=== PATIENT | male | born 1985 | race Caucasian/White ===

== ENCOUNTER 2018-09-15 20:58 | Emergency (ER) | payer SELFPAY ==
[~2018-09-15] VITALS: Ht 182.9 cm; Wt 68.0 kg
--- OUTSIDE RECORDS SUMMARY | 2018-09-15 21:06 | XMS REPORT | Continuity of Care Document ---
Author Organization Unknown Address Unknown Allergies There is no data. Medications There is no data. Problems There is no data. Procedures There is no data. Results There is no data. Encounters ACCT No. Visit Date/Time Discharge Status Pt. Type Provider Facility Loc./Unit Complaint [id number] 09/11/2018 16:40:00 09/11/2018 23:59:59 [facility] Outpatient [facility]
--- NOTE | 2018-09-15 21:37 | ED Integumentary General ---
General Chief Complaint: Lower Extremity Stated Complaint: LF ANKLE PAIN Nursing Triage Note: Patient advises on the first he began experiencing swelling and redness the the left lower extremity that has become progressively worse. He advises for the last four days he has taken and antibiotic, bactrim, that he had at home but states it is not improving. Source: patient Exam Limitations: no limitations History of Present Illness Date Seen by Provider: Sep 15, 2018 Time Seen by Provider: 21:37 Initial Comments 32-year-old male patient presents to the emergency department with complaints of redness and swelling to the left lower extremity beginning one week ago. Patient reports similar symptoms a few months ago and was admitted to [facility] 3 days. Patient reports on this occasion he did start Bactrim that he had left over from his previous infection. Patient also states he was seen at [facility] walk-in clinic on September 11 and told that he had a chemical burn from cleaning his house barefoot while using bleach. He denies being given any medications for this. Timing/Duration: week, other (reports mild improvement with bactrim) Location: extremities (left distal extremity) Possible Cause: no cause identified Modifying Factors: improves with other (mild improvement with Bactrim) Allergies and Home Medications Allergies Coded Allergies: amoxicillin (Verified Allergy, Unknown, 09/15/18) clavulanic acid (Verified Allergy, Unknown, 09/15/18) Uncoded Allergies: ARYTHROMYCIN (Allergy, Unknown, 09/15/18) PCN (Allergy, Unknown, 09/15/18) Patient Home Medication List Home Medication List Reviewed: Yes Review of Systems Review of Systems Constitutional: No chills, No diaphoresis, No fever, No malaise Respiratory: No cough, No dyspnea on exertion, No phlegm, No short of breath, No stridor, No wheezing Cardiovascular: No chest pain, No palpitations, No syncope Gastrointestinal: no symptoms reported Genitourinary: no symptoms reported Musculoskeletal: see HPI, joint pain (left foot and ankle pain (pt denies known recent injury)), joint swelling (left foot and ankle pain) Skin: change in color (erythema left foot and ankle) Psychiatric/Neurological: Denies Numbness, Denies Paresthesia, Denies Tingling All Other Systems Reviewed Negative Unless Noted: Yes (Negative excepted noted.) Past Uweojjs-Anyybo-Qbhggl Hx Past Med/Social Hx: Reviewed and Corrections made Patient Social History Alcohol Use: Occasionally Uses Recreational Drug Use: No Smoking Status: Current Everyday Smoker Type Used: Cigarettes Recent Foreign Travel: No Contact w/Someone Who Travel: No Recent Infectious Disease Expo: No Recent Hopitalizations: No Immunizations Up To Date Tetanus Booster (TDap): Less than 5yrs (2017) Seasonal Allergies Seasonal Allergies: No Past Medical History Surgeries: Yes (shoulder) Orthopedic Respiratory: No Cardiac: No Neurological: No Genitourinary: No Gastrointestinal: No Musculoskeletal: No Endocrine: No HEENT: No Cancer: No Psychosocial: No Blood Disorders: No Adverse Reaction/Blood Tranf: No Family Medical History Reviewed Nursing Family Hx No Pertinent Family Hx Physical Exam Vital Signs Vital Signs - First Documented 09/15/18 21:18 Temp 97.9 Pulse 103 Resp 14 B/P (MAP) 114/83 (93) Pulse Ox 99 O2 Delivery Room Air Capillary Refill : Less Than 3 Seconds General Appearance: WD/WN, no apparent distress HEENT: PERRL/EOMI, pharynx normal Neck: supple, normal inspection Cardiovascular: normal peripheral pulses (bilateral dorsalis pedis and posterior tibialis pulses 2+), regular rate, rhythm, no gallop, no murmur Respiratory: lungs clear, normal breath sounds, no respiratory distress, no accessory muscle use Extremities: no calf tenderness, normal capillary refill, other (swelling, erythema, TTP and mild warmth to the left ankle and left foot. multiple wounds and fissures to the bilat feet and and distal legs. ) Neurologic/Psychiatric: no motor/sensory deficits, alert, normal mood/affect, oriented x 3 Skin: other (swelling, erythema, TTP and mild warmth to the left ankle and left foot. multiple wounds and fissures to the bilat feet and and distal legs. ) Skin Problem Location: lower extremities Skin Problem Character: other (swelling, erythema, TTP and mild warmth to the left ankle and left foot. multiple wounds and fissures to the bilat feet and and distal legs. ) Progress/Results/Core Measures Results/Orders Lab Results Laboratory Tests Test 09/15/18 21:10 Range/Units White Blood Count 9.1 4.3-11.0 10^3/uL Red Blood Count 4.51 4.35-5.85 10^6/uL Hemoglobin 13.1 L 13.3-17.7 G/DL Hematocrit 40 40-54 % Mean Corpuscular Volume 89 80-99 FL Mean Corpuscular Hemoglobin 29 25-34 PG Mean Corpuscular Hemoglobin Concent 33 32-36 G/DL Red Cell Distribution Width 13.5 10.0-14.5 % Platelet Count 337 130-400 10^3/uL Mean Platelet Volume 10.3 7.4-10.4 FL Neutrophils (%) (Auto) 66 42-75 % Lymphocytes (%) (Auto) 22 12-44 % Monocytes (%) (Auto) 10 0-12 % Eosinophils (%) (Auto) 2 0-10 % Basophils (%) (Auto) 1 0-10 % Neutrophils # (Auto) 6.0 1.8-7.8 X 10^3 Lymphocytes # (Auto) 2.0 1.0-4.0 X 10^3 Monocytes # (Auto) 0.9 0.0-1.0 X 10^3 Eosinophils # (Auto) 0.2 0.0-0.3 10^3/uL Basophils # (Auto) 0.1 0.0-0.1 10^3/uL Sodium Level 137 135-145 MMOL/L Potassium Level 3.8 3.6-5.0 MMOL/L Chloride Level 101 98-107 MMOL/L Carbon Dioxide Level 26 21-32 MMOL/L Anion Gap 10 5-14 MMOL/L Blood Urea Nitrogen 19 H 7-18 MG/DL Creatinine 1.26 0.60-1.30 MG/DL Estimat Glomerular Filtration Rate > 60 BUN/Creatinine Ratio 15 Glucose Level 102 70-105 MG/DL Calcium Level 9.6 8.5-10.1 MG/DL Corrected Calcium 9.5 8.5-10.1 MG/DL Total Bilirubin 0.5 0.1-1.0 MG/DL Aspartate Amino Transf (AST/SGOT) 19 5-34 U/L Alanine Aminotransferase (ALT/SGPT) 14 0-55 U/L Alkaline Phosphatase 77 40-136 U/L C-Reactive Protein High Sensitivity 2.00 H 0.00-0.50 MG/DL Total Protein 7.3 6.4-8.2 GM/DL Albumin 4.1 3.2-4.5 GM/DL KELSEY Anderson Cbc With Automated Diff (09/15/18 21:48) Comprehensive Metabolic Panel (09/15/18 21:48) Hs C Reactive Protein (09/15/18 21:48) Ed Iv/Invasive Line Start (09/15/18 21:48) Fentanyl Injection (Sublimaze Injection (09/15/18 21:48) Ketorolac Injection (Toradol Injection) (09/15/18 21:48) Ns Iv 1000 Ml (Sodium Chloride 0.9%) (09/15/18 21:48) Clindamycin 900 Mg/50 Ml Ivpb (Cleocin P (09/15/18 22:00) Medications Given in ED Current Medications Medications Dose Ordered Sig/Mary Route Start Time Stop Time Status Last Admin Dose Admin Clindamycin Phosphate/Dextrose 50 ml @ 100 mls/hr ONCE ONCE IV 09/15/18 22:00 09/15/18 22:29 DC 09/15/18 22:34 100 MLS/HR Sodium Chloride 1,000 ml @ 0 mls/hr Q0M ONCE IV 09/15/18 21:48 09/15/18 21:51 DC 09/15/18 21:56 0 MLS/HR Vital Signs/I&O 09/15/18 21:18 Temp 97.9 Pulse 103 Resp 14 B/P (MAP) 114/83 (93) Pulse Ox 99 O2 Delivery Room Air Blood Pressure Mean: 93 Departure Communication (Admissions) Patient seen and evaluated. Initial labs obtained. Patient was given 50 g of fentanyl IV, 30 mg IV Toradol, and 1900 mg of IV Cleocin 1 dose. Impression Primary Impression: Cellulitis of left lower leg Additional Impression: Cellulitis of left foot Disposition: HOME, SELF-CARE Condition: Improved Departure-Patient Inst. Decision time for Depature: 22:42 Referrals: NO,LOCAL PHYSICIAN (PCP/Family) Primary Care Physician Patient Instructions: Cellulitis (Skin Infection), Adult (DC) Add. Discharge Instructions: All discharge instructions reviewed with patient and/or family. Voiced understanding. Medications as instructed. Tylenol extra strength supl-yic-[id number] as directed for pain. Ibuprofen 800 mg by mouth every 8 hours as needed for pain. Elevate the left lower extremity on pillows above the level of the heart as much as possible. Follow-up with your primary care provider for recheck as an outpatient Sunday or Sunday. Call [facility] morning for appointment time. Return to the emergency department for worsened pain, redness, fever, drainage, or any other concerns. Scripts Doxycycline Hyclate (Doxycycline Hyclate) 100 Mg Capsule 100 MG PO BID, #14 CAP 0 Refills Prov: KELSEY JACOB 09/15/18 Sulfamethoxazole/Trimethoprim (Bactrim Ds Tablet) 1 Each Tablet 1 EACH PO BID, #14 TAB 0 Refills Prov: KELSEY JACOB 09/15/18 Work/School Note: Local Medical Staff Listing KELSEY JACOB Sep 15, 2018 21:37
[2018-09-15] MEDS ORDERED: fentaNYL INJECTION 100 MCG/2 ML AMP IVP STA (21:48)
[2018-09-15] MEDS ORDERED: NS IV 1000 ML 1,000 ML IV ONE (21:48)
[2018-09-15] MEDS ORDERED: KETOROLAC 30 MG/ML VIAL IVP STA (21:48)
[2018-09-15] MEDS ORDERED: CLINDAMYCIN 900 MG/50 ML IVPB 50 ML IV ONE (22:00)
[2018-09-15 22:06] LABS: BASOPHILS # (AUTO) 0.1 10^3/uL (0.0-0.1); BASOPHILS % (AUTO) 1 % (0-10); EOSINOPHILS # (AUTO) 0.2 10^3/uL (0.0-0.3); EOSINOPHILS % (AUTO) 2 % (0-10); HEMATOCRIT 40 % (40-54); HEMOGLOBIN 13.1 G/DL (13.3-17.7); LYMPHOCYTES % (AUTO) 22 % (12-44); MEAN CORPUSCULAR HEMOGLOBIN 29 PG (25-34); MEAN CORPUSCULAR HGB CONC 33 G/DL (32-36); MEAN CORPUSCULAR VOLUME 89 FL (80-99); MEAN PLATELET VOLUME 10.3 FL (7.4-10.4); MONOCYTES # (AUTO) 0.9 X 10^3 (0.0-1.0); MONOCYTES % (AUTO) 10 % (0-12); NEUTROPHILS % (AUTO) 66 % (42-75); PLATELET COUNT 337 10^3/uL (130-400); RED CELL DISTRIBUTION WIDTH 13.5 % (10.0-14.5); WHITE BLOOD COUNT 9.1 10^3/uL (4.3-11.0)
[2018-09-15 22:21] LABS: ALANINE AMINOTRANSFERASE 14 U/L (0-55); ALBUMIN 4.1 GM/DL (3.2-4.5); ALKALINE PHOSPHATASE 77 U/L (40-136); BILIRUBIN,TOTAL 0.5 MG/DL (0.1-1.0); BUN/CREATININE RATIO 15; CALCIUM 9.6 MG/DL (8.5-10.1); CARBON DIOXIDE 26 MMOL/L (21-32); CHLORIDE 101 MMOL/L (98-107); CREATININE SERUM 1.26 MG/DL (0.60-1.30); GFR ESTIMATED > 60; GLUCOSE 102 MG/DL (70-105); POTASSIUM 3.8 MMOL/L (3.6-5.0); SODIUM 137 MMOL/L (135-145); TOTAL PROTEIN 7.3 GM/DL (6.4-8.2)
[2018-09-15] MEDS ORDERED: SULF1TAB35 PO (22:44)
[2018-09-15] MEDS ORDERED: DOXY100C2 PO (22:44)
[2018-09-15] MEDS ORDERED: RX-TRAMADOL 50 MG (ULTRAM) TAB PPK#4 PO STA (22:45)
--- NOTE | 2018-09-15 23:09 | NUR ---
clindymycin completed.
--- NOTE | 2018-09-15 23:12 | NUR ---
i will be merely d/cing pt for another nurse who said pt had his bolus completed already.
--- NOTE | 2018-09-15 23:20 | NUR ---
d/c instrcutions to pt. told to read all papers. scripts paper only. pt left ambulatory by self. pt lnows f/u. i went over the handtyped by information on the chart. iv d/cd by me prior to d/c. take home ultram given.
[2018-09-15 23:25] VITALS: BP 100/62
== END 2018-09-15 23:20 | disposition home or self-care (01) ==
LOC: ER 21:01
DX: L03.116 Cellulitis of left lower limb (principal); F17.210 Nicotine dependence, cigarettes, uncomplicated; Z88.1 Allergy status to other antibiotic agents; Z88.0 Allergy status to penicillin
CPT/HCPCS: 36415; 80053; 85025; 86141; 96361; 96365; 96375

== ENCOUNTER 2018-12-26 14:31 | Emergency (ER) | payer SELFPAY ==
[~2018-12-26] VITALS: Ht 182.8 cm; Wt 70.0 kg
[~2018-12-26 14:31] MED LIST: DOXY100C2 PO; SULF1TAB35 PO
[2018-12-26] MEDS ORDERED: SODIUM BICARB 8.4% 50 MEQ/50 ML VIAL IV ONE (14:45)
[2018-12-26] MEDS ORDERED: LIDOCAINE/EPI 2% 1:100,00 (XYLOCAINE) 20 ML VIAL INJ ONE (14:45)
--- NOTE | 2018-12-26 15:15 | ED General ---
General Chief Complaint: Skin/Wound Problems Stated Complaint: L ARM POSS SPIDER BITE Nursing Triage Note: AMB TO ROOM HAS AREA OF CONCERN IN L AC AREA. NOTICED 2 DAYS AGO Nursing Sepsis Screen: No Definite Risk Source of Information: Patient Exam Limitations: No Limitations History of Present Illness Date Seen by Provider: Dec 26, 2018 Time Seen by Provider: 14:36 Initial Comments This 33-year-old young man presents to the emergency room with a large abscess in the left antecubital fossa region. It has been growing over the past 2 days. There was no known injury or break in the skin to his knowledge. He states some tissue or dried drainage came off with the dressing today and a poor and. There his been a small amount of pus like drainage. He denies fever. There is an area about 2-3 cm in radius surrounding the abscess that is erythematous, tender, and warm. Skin is rather indurated. He denies any self injection that may have caused the abscess. Allergies and Home Medications Allergies Coded Allergies: amoxicillin (Verified Allergy, Unknown, 09/15/18) clavulanic acid (Verified Allergy, Unknown, 09/15/18) Uncoded Allergies: ARYTHROMYCIN (Allergy, Unknown, 09/15/18) PCN (Allergy, Unknown, 09/15/18) Home Medications Doxycycline Hyclate 100 Mg Capsule, 100 MG PO BID Prescribed by: KELSEY JACOB on 09/15/184 Sulfamethoxazole/Trimethoprim 1 Each Tablet, 1 EACH PO BID Prescribed by: KELSEY JACOB on 09/15/184 Sulfamethoxazole/Trimethoprim 1 Each Tablet, 1 EACH PO TID Increased frequency due to location and severity of infection Prescribed by: CLAU STANTON on 12/26/18 1516 Patient Home Medication List Home Medication List Reviewed: Yes Review of Systems Review of Systems Constitutional: no symptoms reported EENTM: no symptoms reported Respiratory: no symptoms reported Cardiovascular: no symptoms reported Gastrointestinal: no symptoms reported Musculoskeletal: no symptoms reported Skin: see HPI Psychiatric/Neurological: No Symptoms Reported Hematologic/Lymphatic: No Symptoms Reported Immunological/Allergic: no symptoms reported Past Mcwqbnw-Saqnhf-Utysdf Hx Past Med/Social Hx: Reviewed Nursing Past Med/Soc Hx Patient Social History Alcohol Use: Occasionally Uses Alcohol Beverage of Choice: Beer Recreational Drug Use: No Smoking Status: Current Everyday Smoker Type Used: Cigarettes Recent Foreign Travel: No Contact w/Someone Who Travel: No Recent Infectious Disease Expo: No Recent Hopitalizations: No Immunizations Up To Date Tetanus Booster (TDap): Less than 5yrs Seasonal Allergies Seasonal Allergies: No Past Medical History Surgeries: Yes (shoulder) Orthopedic Respiratory: No Cardiac: No Neurological: No Genitourinary: No Gastrointestinal: No Musculoskeletal: No Endocrine: No HEENT: No Cancer: No Psychosocial: No Blood Disorders: No Adverse Reaction/Blood Tranf: No Family Medical History No Pertinent Family Hx Physical Exam Vital Signs Vital Signs - First Documented 12/26/18 14:34 Temp 36.5 Pulse 97 Resp 18 B/P (MAP) 143/82 (102) Pulse Ox 99 O2 Delivery Room Air Capillary Refill : Less Than 3 Seconds Height, Weight, BMI Height: 6'0" Weight: 150lbs. oz. 68.994652mz; 20.00 BMI Method:Stated General Appearance: No Apparent Distress, WD/WN, Thin HEENT: PERRL/EOMI, Normal ENT Inspection Neck: Normal Inspection Respiratory: Lungs Clear, Normal Breath Sounds, No Accessory Muscle Use, No Respiratory Distress Cardiovascular: Regular Rate, Rhythm, No Edema, No Murmur Extremity: Other (Large abscess about 2-3 cm in diameter on the antecubital fossa of the left arm. There is a central crater with minimal drainage. There is warm erythema and a 2-3 cm radius surrounding the abscess. 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 Local anesthesia was then provided with buffered lidocaine with epinephrine. A ring block was made around the abscess. A small amount of anesthetic was injected directly over the skin of the abscess. A 1 cm incision was then made over the center of the abscess. A moderate amount of purulent material was expressed. Loculations were broken up with a hemostat. Medical student Vlad Carmona, MS 3 performed the incision under my direct supervision. Wound culture was obtained. Patient tolerated the procedure well. Wound was dressed with antibiotic ointment and gauze. Dressing supplies were sent with the patient. Progress/Results/Core Measures Suspected Sepsis Recent Fever Within 48 Hours: No Infection Criteria Present: None New/Unexplained Altered Menta: No Sepsis Screen: No Definite Risk SIRS Temperature: Pulse: 97 Respiratory Rate: 18 Blood Pressure 143 /82 Mean: 102 Results/Orders My Orders Orders - CLAU BOURGEOIS MD Lidocaine/Epi 2% 1:100,000 (Xylocaine/Ep (12/26/18 14:45) Sodium Bicarbonate 8.4% Vial (Sodium Bic (12/26/18 14:45) Wound Culture (12/26/18 15:16) Medications Given in ED Current Medications Medications Dose Ordered Sig/Mary Route Start Time Stop Time Status Last Admin Dose Admin Lidocaine/ Epinephrine 20 ml ONCE ONCE INJ 12/26/18 14:45 12/26/18 14:46 DC 12/26/18 14:49 20 ML Sodium Bicarbonate 50 meq ONCE ONCE IV 12/26/18 14:45 12/26/18 14:46 DC 12/26/18 14:49 50 MEQ Vital Signs/I&O 12/26/18 12/26/18 14:34 15:31 Temp 36.5 Pulse 97 97 Resp 18 18 B/P (MAP) 143/82 (102) 143/82 Pulse Ox 99 98 O2 Delivery Room Air Capillary Refill : Less Than 3 Seconds Blood Pressure Mean: 102 Departure Impression Primary Impression: Cellulitis and abscess of upper arm and forearm Additional Impression: Encounter for incision and drainage procedure Disposition: 01 HOME, SELF-CARE Condition: Improved Departure-Patient Inst. Decision time for Depature: 15:10 Referrals: NO,LOCAL PHYSICIAN (PCP/Family) Primary Care Physician Patient Instructions: Abscess Incision and Drainage (DC) Add. Discharge Instructions: Complete your antibiotics as prescribed. You may take ibuprofen up to 600 mg every 6 hours and/or Tylenol (acetaminophen) up to 1000 mg every 6 hours as needed for pain. Keep wound covered as long as it is draining. Soak in warm water and Hibiclens soap for 20-30 minutes 3 times a day as long as wound is inflamed and/or draining. Return to the emergency room if you have worsening symptoms, especially if you develop fevers over 100. All discharge instructions reviewed with patient and/or family. Voiced understa nding. Scripts Sulfamethoxazole/Trimethoprim (Bactrim Ds Tablet) 1 Each Tablet 1 EACH PO TID, #21 TAB Increased frequency due to location and severity of infection Prov: CLAU BOURGEOIS MD 12/26/18 Work/School Note: Work Release Form Date Seen in the Emergency Department: Dec 26, 2018 Return to Work: Dec 27, 2018 Other Restrictions Listed Below: Keep wound covered while at work until healed. CLAU BOURGEOIS MD Dec 26, 2018 15:15
[2018-12-26] MEDS ORDERED: SULF1TAB35 PO (15:16)
[2018-12-26 15:31] VITALS: BP 143/82
== END 2018-12-26 15:31 | disposition home or self-care (01) ==
LOC: EDUNIT# 14:31 → ER 14:32
DX: L03.114 Cellulitis of left upper limb (principal); L02.414 Cutaneous abscess of left upper limb; F17.210 Nicotine dependence, cigarettes, uncomplicated; Z88.0 Allergy status to penicillin; Z88.1 Allergy status to other antibiotic agents
CPT/HCPCS: 87070; 87077; 87186; 87205; 99282

== ENCOUNTER 2018-12-27 21:47 | Inpatient (IN) | payer SELFPAY ==
[~2018-12-27] VITALS: Ht 182.9 cm; Wt 71.8 kg
[2018-12-27] MEDS ORDERED: NS IV 1000 ML 1,000 ML IV ONE (23:17)
[2018-12-27] MEDS ORDERED: KETOROLAC 30 MG/ML VIAL IVP STA (23:17)
--- NOTE | 2018-12-27 23:21 | ED Integumentary General ---
General Chief Complaint: Skin/Wound Problems Stated Complaint: LEFT ARM PAIN Nursing Triage Note: c/o wound to LAC. patient stated he was here 1 day prior and had area drained, put on bactrim, without improvement Source: patient Exam Limitations: no limitations History of Present Illness Date Seen by Provider: Dec 27, 2018 Time Seen by Provider: 23:10 Initial Comments 33-year-old male patient presents with complaints of a wound and cellulitis to the left AC. Patient states he was here one day prior for similar complaints. Patient states an incision and drainage was performed and he was put on Bactrim. Patient reports increased redness, pain, and swelling. Timing/Duration: getting worse Location: extremities (left before meals) Possible Cause: no cause identified Modifying Factors: worse with other (worse with palpation and movement) Allergies and Home Medications Allergies Coded Allergies: amoxicillin (Verified Allergy, Unknown, 09/15/18) clavulanic acid (Verified Allergy, Unknown, 09/15/18) Uncoded Allergies: ARYTHROMYCIN (Allergy, Unknown, 09/15/18) PCN (Allergy, Unknown, 09/15/18) Home Medications Doxycycline Hyclate 100 Mg Capsule, 100 MG PO BID Prescribed by: KELSEY JACOB on 09/15/18 2244 Sulfamethoxazole/Trimethoprim 1 Each Tablet, 1 EACH PO BID Prescribed by: KELSEY JACOB on 09/15/18 2244 Sulfamethoxazole/Trimethoprim 1 Each Tablet, 1 EACH PO TID Increased frequency due to location and severity of infection Prescribed by: CLAU STANTON on 12/26/18 1516 Patient Home Medication List Home Medication List Reviewed: Yes Review of Systems Review of Systems Constitutional: No chills, No dizziness, No fever, No malaise EENTM: no symptoms reported Respiratory: no symptoms reported Cardiovascular: no symptoms reported Gastrointestinal: no symptoms reported Musculoskeletal: see HPI Skin: see HPI Psychiatric/Neurological: No Symptoms Reported All Other Systems Reviewed Negative Unless Noted: Yes (Negative excepted noted.) Past Gkkhjnj-Zkusiw-Hixbun Hx Past Med/Social Hx: Reviewed Nursing Past Med/Soc Hx Patient Social History Alcohol Use: Denies Use Number of Drinks Today: AA Alcohol Beverage of Choice: Beer Recreational Drug Use: No Type Used: Cigarettes Recent Foreign Travel: No Contact w/Someone Who Travel: No Recent Infectious Disease Expo: No Recent Hopitalizations: No Physical Abuse: No Sexual Abuse: No Mistreated: No Fear: No Immunizations Up To Date Tetanus Booster (TDap): Less than 5yrs Seasonal Allergies Seasonal Allergies: No Past Medical History Surgeries: Yes (shoulder) Orthopedic Respiratory: No Cardiac: No Neurological: No Genitourinary: No Gastrointestinal: No Musculoskeletal: No Endocrine: No HEENT: No Cancer: No Psychosocial: No Blood Disorders: No Adverse Reaction/Blood Tranf: No Family Medical History Reviewed Nursing Family Hx No Pertinent Family Hx Physical Exam Vital Signs Vital Signs - First Documented 12/27/18 22:21 Temp 36.8 Pulse 98 Resp 18 B/P (MAP) 126/81 (96) Pulse Ox 100 Capillary Refill : Less Than 3 Seconds General Appearance: WD/WN, no apparent distress Cardiovascular: normal peripheral pulses, regular rate, rhythm, no murmur Respiratory: lungs clear, normal breath sounds, no respiratory distress, no accessory muscle use Extremities: normal capillary refill, other (erythema, swelling, and warmth involving the proximal two thirds of the left forearm, left AC, and the distal one half of the bicep region) Neurologic/Psychiatric: no motor/sensory deficits, alert, normal mood/affect, oriented x 3 Skin: normal color, warm/dry, other (erythema, swelling, and warmth involving the proximal two thirds of the left forearm, left AC, and the distal one half of the bicep region) Skin Problem Location: upper extremities (left upper extremity) Skin Problem Character: erythema, swelling, tenderness, warm Progress/Results/Core Measures Results/Orders Lab Results Laboratory Tests Test 12/27/18 23:30 Range/Units White Blood Count 11.8 H 4.3-11.0 10^3/uL Red Blood Count 4.32 L 4.35-5.85 10^6/uL Hemoglobin 12.6 L 13.3-17.7 G/DL Hematocrit 38 L 40-54 % Mean Corpuscular Volume 89 80-99 FL Mean Corpuscular Hemoglobin 29 25-34 PG Mean Corpuscular Hemoglobin Concent 33 32-36 G/DL Red Cell Distribution Width 13.5 10.0-14.5 % Platelet Count 276 130-400 10^3/uL Mean Platelet Volume 10.4 7.4-10.4 FL Neutrophils (%) (Auto) 67 42-75 % Lymphocytes (%) (Auto) 18 12-44 % Monocytes (%) (Auto) 14 H 0-12 % Eosinophils (%) (Auto) 2 0-10 % Basophils (%) (Auto) 1 0-10 % Neutrophils # (Auto) 7.9 H 1.8-7.8 X 10^3 Lymphocytes # (Auto) 2.1 1.0-4.0 X 10^3 Monocytes # (Auto) 1.6 H 0.0-1.0 X 10^3 Eosinophils # (Auto) 0.2 0.0-0.3 10^3/uL Basophils # (Auto) 0.1 0.0-0.1 10^3/uL Sodium Level 135 135-145 MMOL/L Potassium Level 3.6 3.6-5.0 MMOL/L Chloride Level 100 98-107 MMOL/L Carbon Dioxide Level 24 21-32 MMOL/L Anion Gap 11 5-14 MMOL/L Blood Urea Nitrogen 16 7-18 MG/DL Creatinine 1.06 0.60-1.30 MG/DL Estimat Glomerular Filtration Rate > 60 BUN/Creatinine Ratio 15 Glucose Level 83 70-105 MG/DL Calcium Level 9.3 8.5-10.1 MG/DL Corrected Calcium 9.2 8.5-10.1 MG/DL Total Bilirubin 0.6 0.1-1.0 MG/DL Aspartate Amino Transf (AST/SGOT) 32 5-34 U/L Alanine Aminotransferase (ALT/SGPT) 19 0-55 U/L Alkaline Phosphatase 83 40-136 U/L C-Reactive Protein High Sensitivity 12.92 H 0.00-0.50 MG/DL Total Protein 7.3 6.4-8.2 GM/DL Albumin 4.1 3.2-4.5 GM/DL My Orders Orders - KELSEY JACOB Ed Iv/Invasive Line Start (12/27/18 23:17) Cbc With Automated Diff (12/27/18 23:17) Comprehensive Metabolic Panel (12/27/18 23:17) Hs C Reactive Protein (12/27/18 23:17) Ns Iv 1000 Ml (Sodium Chloride 0.9%) (12/27/18 23:17) Ketorolac Injection (Toradol Injection) (12/27/18 23:17) Clindamycin 900 Mg/50 Ml Ivpb (Cleocin P (12/27/18 23:30) Morphine Injection (Morphine Injection (12/28/18 00:15) Medications Given in ED Vital Signs/I&O 12/27/18 22:21 Temp 36.8 Pulse 98 Resp 18 B/P (MAP) 126/81 (96) Pulse Ox 100 Blood Pressure Mean: 96 Departure Communication (Admissions) Time/Spoke to Admitting Phy: 00:05 Dr. Ndiaye graciously accepts patient to his service for IV antibiotics and pain control. patient seen and evaluated. initial labs obtained with findings discussed with the patient. plan for admit d/w the patient. pt verbalizes understanding and agrees with the treatment plan. Impression Primary Impression: Cellulitis of left arm Additional Impression: Failure of outpatient treatment Disposition: 01 HOME, SELF-CARE Condition: Improved Admissions Decision to Admit Reason: Admit from ER (General) Decision to Admit/Date: Dec 28, 2018 Time/Decision to Admit Time: 00:17 Departure-Patient Inst. Referrals: NO,LOCAL PHYSICIAN (PCP/Family) Primary Care Physician KELSEY JACOB Dec 27, 2018 23:21
[2018-12-27] MEDS ORDERED: CLINDAMYCIN 900 MG/50 ML IVPB 50 ML IV ONE (23:30)
[2018-12-27 23:41] LABS: BASOPHILS # (AUTO) 0.1 10^3/uL (0.0-0.1); BASOPHILS % (AUTO) 1 % (0-10); EOSINOPHILS # (AUTO) 0.2 10^3/uL (0.0-0.3); EOSINOPHILS % (AUTO) 2 % (0-10); HEMATOCRIT 38 % (40-54); HEMOGLOBIN 12.6 G/DL (13.3-17.7); LYMPHOCYTES # (AUTO) 2.1 X 10^3 (1.0-4.0); LYMPHOCYTES % (AUTO) 18 % (12-44); MEAN CORPUSCULAR HEMOGLOBIN 29 PG (25-34); MEAN CORPUSCULAR HGB CONC 33 G/DL (32-36); MEAN CORPUSCULAR VOLUME 89 FL (80-99); MEAN PLATELET VOLUME 10.4 FL (7.4-10.4); MONOCYTES # (AUTO) 1.6 X 10^3 (0.0-1.0); MONOCYTES % (AUTO) 14 % (0-12); NEUTROPHILS # (AUTO) 7.9 X 10^3 (1.8-7.8); NEUTROPHILS % (AUTO) 67 % (42-75); PLATELET COUNT 276 10^3/uL (130-400); RED CELL DISTRIBUTION WIDTH 13.5 % (10.0-14.5); WHITE BLOOD COUNT 11.8 10^3/uL (4.3-11.0)
[2018-12-27 23:59] LABS: ALANINE AMINOTRANSFERASE 19 U/L (0-55); ALBUMIN 4.1 GM/DL (3.2-4.5); ALKALINE PHOSPHATASE 83 U/L (40-136); BILIRUBIN,TOTAL 0.6 MG/DL (0.1-1.0); BUN/CREATININE RATIO 15; CALCIUM 9.3 MG/DL (8.5-10.1); CARBON DIOXIDE 24 MMOL/L (21-32); CHLORIDE 100 MMOL/L (98-107); CREATININE SERUM 1.06 MG/DL (0.60-1.30); GFR ESTIMATED > 60; GLUCOSE 83 MG/DL (70-105); POTASSIUM 3.6 MMOL/L (3.6-5.0); SODIUM 135 MMOL/L (135-145); TOTAL PROTEIN 7.3 GM/DL (6.4-8.2)
[2018-12-28] VITALS (7 sets, daily range): BP systolic 103–135; BP diastolic 57–78
[2018-12-28] MEDS ORDERED: morphine INJ 10 MG/ML 1ML (SYR OR VIAL) IVP ONE (00:15)
--- NOTE | 2018-12-28 01:37 | NUR ---
BENJA MILLER admitted to room 424-1, with an admitting diagnosis of EXTENSIVE CELLULITIS LT UPPER EXTREMITY, FAILLED ANTIBIOTIC TREATMENT , on 12/28/18 from ED via , accompanied by ED STAFF.BENJA MILLER introduced to surroundings, call light, bed controls, phone, TV, temperature control, lights, meal times, smoking policy, visitor policy, side rail policy, bathrooms and showers. Patient Rights given to patient in the handbook.BENJA MILLER verbalizes understanding that [facility] is not responsible for the loss or damage to any personal effects or valuables that are kept in the patients posession during their hospitalization.
[2018-12-28] MEDS ORDERED: ONDANSETRON 4 MG/2 ML (SDV) Z0FRAN IV PRN (02:30)
[2018-12-28] MEDS: NS IV 1000 ML 1,000 ML IV SCH ×3 (02:44→15:38)
[2018-12-28] MEDS: fentaNYL INJECTION 100 MCG/2 ML AMP IV PRN (02:44)
[2018-12-28] MEDS ORDERED: CLINDAMYCIN 600 MG/50 ML IVPB 50 ML IV SCH (05:00)
[2018-12-28 05:36] LABS: BASOPHILS % (AUTO) 0 % (0-10); EOSINOPHILS # (AUTO) 0.2 10^3/uL (0.0-0.3); EOSINOPHILS % (AUTO) 2 % (0-10); HEMATOCRIT 36 % (40-54); HEMOGLOBIN 11.7 G/DL (13.3-17.7); LYMPHOCYTES % (AUTO) 21 % (12-44); MEAN CORPUSCULAR HEMOGLOBIN 29 PG (25-34); MEAN CORPUSCULAR HGB CONC 33 G/DL (32-36); MEAN CORPUSCULAR VOLUME 90 FL (80-99); MEAN PLATELET VOLUME 10.7 FL (7.4-10.4); MONOCYTES # (AUTO) 1.2 X 10^3 (0.0-1.0); MONOCYTES % (AUTO) 13 % (0-12); NEUTROPHILS % (AUTO) 64 % (42-75); PLATELET COUNT 230 10^3/uL (130-400); RED CELL DISTRIBUTION WIDTH 13.5 % (10.0-14.5); WHITE BLOOD COUNT 9.4 10^3/uL (4.3-11.0)
[2018-12-28 06:01] LABS: ALANINE AMINOTRANSFERASE 17 U/L (0-55); ALBUMIN 3.5 GM/DL (3.2-4.5); ALKALINE PHOSPHATASE 65 U/L (40-136); BILIRUBIN,TOTAL 0.5 MG/DL (0.1-1.0); BUN/CREATININE RATIO 14; CALCIUM 8.6 MG/DL (8.5-10.1); CARBON DIOXIDE 24 MMOL/L (21-32); CHLORIDE 106 MMOL/L (98-107); GFR ESTIMATED > 60; GLUCOSE 86 MG/DL (70-105); POTASSIUM 4.3 MMOL/L (3.6-5.0); SODIUM 137 MMOL/L (135-145); TOTAL PROTEIN 6.1 GM/DL (6.4-8.2)
[2018-12-28] MEDS: HYDROcodone/APAP 5 MG/325 MG (LORTAB) TAB PO PRN ×3 (07:01→20:48)
[2018-12-28] MEDS ORDERED: FLU QUADRIvalent (5+ YOA) 2019-2020 (AFLURIA) 0.5 ML IM ONE (07:45)
[2018-12-28] MEDS: KETOROLAC 30 MG/ML VIAL IVP PRN (08:11)
[2018-12-28] MEDS ORDERED: VANCOMYCIN INJECTION 1,250 MG in NS (IVPB) 250 ML IV ONE (11:45)
[2018-12-28] MEDS ORDERED: VANCOMYCIN INJECTION 0.1 MG in NS (IVPB) 250 ML IV SCH (11:45)
[2018-12-28] MEDS ORDERED: VANCOMYCIN 1500 MG/NS 500 ML IVPB IV NR ×2 (11:47)
[2018-12-28] MEDS ORDERED: HOLD METFORMIN - RECEIVED CONTRAST 20 ML VIAL IV SCH (12:30)
[2018-12-28] MEDS ORDERED: IOHEXOL 350 MG/ML 100 ML (OMNIPAQUE 350) VIAL IV ONE (12:30)
[2018-12-28] MEDS ORDERED: NS 100 ML (IVPB) BAG IV ONE (12:30)
--- NOTE | 2018-12-28 13:57 | Diagnostic Imaging Report ---
PROCEDURE: CT left upper extremity with contrast. TECHNIQUE: Axial images were obtained through the left upper extremity after intravenous contrast and reformatted into coronal and sagittal oblique planes. Auto Exposure Controls were utilized during the CT exam to meet ALARA standards for radiation dose reduction. INDICATION: Abscess. FINDINGS: No comparison available. There is a wound involving the anterior aspect of the left elbow soft tissues. There is a fluid collection measuring 2.1 x 1.3 cm extending into the musculature deep to the soft tissue wound. The craniocaudal extent is 3.9 cm. Vasculature is patent. No osseous involvement is present. No osteomyelitis. There are enlarged left axillary lymph nodes measuring up to 15 mm. IMPRESSION: 1. Soft tissue wound anteriorly at the level of the left elbow with extension into the underlying musculature with pyomyositis and an intramuscular abscess measuring 1.3 x 2.1 x 3.9 cm. 2. Vasculature is patent and there is no involvement of the bone. Dictated by: Dictated on workstation # [id number]
--- NOTE | 2018-12-28 16:19 | Consultation - Surgery ---
History of Present Illness History of Present Illness Patient Consulted On(alexis/time) 12/28/18 16:12 Time Seen by Provider: 15:52 History of Present Illness Surgery asked to consult regarding LUE cellulitis. HPI per ED: 33-year-old male patient presents with complaints of a wound and cellulitis to the left upper arm. Patient states he was here one day prior for similar complaints. Patient states an incision and drainage was performed and he was put on Bactrim. Patient reports increased redness, pain, and swelling. Timing/Duration: getting worse Location: extremities left upper Possible Cause: no cause identified Modifying Factors: worse with other (worse with palpation and movement) When I spoke with pt he states the pain and swelling is about the same, but the redness is better. He denies any trauma to the area or previous cuts. He reports the pain as 6 out of 10. Apparently it got worse while taking oral ABX at home. Allergies and Home Medications Allergies Coded Allergies: amoxicillin (Verified Allergy, Unknown, 09/15/18) clavulanic acid (Verified Allergy, Unknown, 09/15/18) Uncoded Allergies: ARYTHROMYCIN (Allergy, Unknown, 09/15/18) PCN (Allergy, Unknown, 09/15/18) Home Medications Doxycycline Hyclate 100 Mg Capsule, 100 MG PO BID Prescribed by: KELSEY JACOB on 09/15/184 Sulfamethoxazole/Trimethoprim 1 Each Tablet, 1 EACH PO BID Prescribed by: KELSEY JACOB on 09/15/18 2244 Sulfamethoxazole/Trimethoprim 1 Each Tablet, 1 EACH PO TID Increased frequency due to location and severity of infection Prescribed by: CLAU STANTON on 12/26/18 1516 Patient Home Medication List Home Medication List Reviewed: Yes Past Guucsrw-Gwmkyi-Fduwfs Hx Patient Social History Alcohol Use: Denies Use Number of Drinks Today: AA Recreational Drug Use: No Type Used: Cigarettes Recent Foreign Travel: No Contact w/Someone Who Travel: No Recent Infectious Disease Expo: No Recent Hopitalizations: No Physical Abuse Screen: No Sexual Abuse: No Immunizations Up To Date Tetanus Booster (TDap): Less than 5yrs Seasonal Allergies Seasonal Allergies: No Surgeries History of Surgeries: Yes (shoulder) Surgeries: Orthopedic Respiratory History of Respiratory Disorde: No Cardiovascular History of Cardiac Disorders: No Neurological History of Neurological Disord: No Genitourinary History of Genitourinary Disor: No Gastrointestinal History of Gastrointestinal Di: No Musculoskeletal History of Musculoskeletal Dis: No Endocrine History of Endocrine Disorders: No HEENT History of HEENT Disorders: No Cancer History of Cancer: No Psychosocial History of Psychiatric Problem: No Integumentary History of Skin or Integumenta: Yes (see hpi) Blood Transfusions History of Blood Disorders: No Adverse Reaction to a Blood Tr: No Family Medical History Significant Family History: Diabetes (grandparents), Other Conditions/Hx (Pt stated his parents do not have any medical problems) Review of Systems-General Constitutional: chills, diaphoresis, malaise EENTM: No blurred vision, No double vision, No mouth pain, No mouth swelling, N o epistaxis Respiratory: No cough, No dyspnea on exertion, No hemoptysis Cardiovascular: No chest pain, No palpitations Gastrointestinal: No abdominal pain, No nausea, No vomiting Genitourinary: No dysuria, No frequency, No hematuria Musculoskeletal: joint pain, joint swelling, muscle stiffness Skin: change in color; No change in hair/nails; lesions Psychiatric/Neurological: Denies Anxiety, Denies Depressed, Denies Seizure, Denies Tremors Other pt denies any hx of abnormal bleeding or bruising Physical Exam-General Problems Physical Exam Vital Signs Vital Signs - First Documented 12/27/18 12/28/18 22:21 00:32 Temp 36.8 Pulse 98 Resp 18 B/P (MAP) 126/81 (96) Pulse Ox 100 O2 Delivery Room Air Capillary Refill : Less Than 3 Seconds General Appearance: WD/WN, no apparent distress Eyes: Bilateral Eye PERRL, Bilateral Eye EOMI HEENT: pharynx normal; No pale conjunctivae (R), No pale conjunctivae (L) Neck: non-tender, full range of motion, supple, normal inspection Respiratory: chest non-tender, lungs clear, normal breath sounds, no respiratory distress, no accessory muscle use Cardiovascular: regular rate, rhythm, no murmur Gastrointestinal: normal bowel sounds, non tender, soft, no organomegaly, no pulsatile mass Back: no CVA tenderness, no vertebral tenderness Extremities: no pedal edema, no calf tenderness, normal capillary refill, other (Left arm at AC, tender, swollen but only minimal erythema. 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, alert, normal mood/affect, oriented x 3 Skin: normal color, warm/dry Lymphatic: no adenopathy (neck or groin ), axilla node tender (L) Data Review Labs Laboratory Tests 12/27/18 23:30: White Blood Count 11.8H, Red Blood Count 4.32L, Hemoglobin 12.6L, Hematocrit 38L , Mean Corpuscular Volume 89, Mean Corpuscular Hemoglobin 29, Mean Corpuscular Hemoglobin Concent 33, Red Cell Distribution Width 13.5, Platelet Count 276, Mean Platelet Volume 10.4, Neutrophils (%) (Auto) 67, Lymphocytes (%) (Auto) 18, Monocytes (%) (Auto) 14H, Eosinophils (%) (Auto) 2, Basophils (%) (Auto) 1, Neutrophils # (Auto) 7.9H, Lymphocytes # (Auto) 2.1, Monocytes # (Auto) 1.6H, Eosinophils # (Auto) 0.2, Basophils # (Auto) 0.1, Sodium Level 135, Potassium Level 3.6, Chloride Level 100, Carbon Dioxide Level 24, Anion Gap 11, Blood Urea Nitrogen 16, Creatinine 1.06, Estimat Glomerular Filtration Rate > 60, BUN/Creatinine Ratio 15, Glucose Level 83, Calcium Level 9.3, Corrected Calcium 9.2, Total Bilirubin 0.6, Aspartate Amino Transf (AST/SGOT) 32, Alanine Aminotransferase (ALT/SGPT) 19, Alkaline Phosphatase 83, C-Reactive Protein High Sensitivity 12.92H, Total Protein 7.3, Albumin 4.1 12/28/18 05:13: White Blood Count 9.4, Red Blood Count 4.00L, Hemoglobin 11.7L, Hematocrit 36L, Mean Corpuscular Volume 90, Mean Corpuscular Hemoglobin 29, Mean Corpuscular Hemoglobin Concent 33, Red Cell Distribution Width 13.5, Platelet Count 230, Mean Platelet Volume 10.7H, Neutrophils (%) (Auto) 64, Lymphocytes (%) (Auto) 21, Monocytes (%) (Auto) 13H, Eosinophils (%) (Auto) 2, Basophils (%) (Auto) 0, Neutrophils # (Auto) 6.0, Lymphocytes # (Auto) 2.0, Monocytes # (Auto) 1.2H, Eosinophils # (Auto) 0.2, Basophils # (Auto) 0.0, Sodium Level 137, Potassium Level 4.3, Chloride Level 106, Carbon Dioxide Level 24, Anion Gap 7, Blood Urea Nitrogen 13, Creatinine 0.90, Estimat Glomerular Filtration Rate > 60, BUN/Creatinine Ratio 14, Glucose Level 86, Calcium Level 8.6, Corrected Calcium 9.0, Total Bilirubin 0.5, Aspartate Amino Transf (AST/SGOT) 27, Alanine Aminotransferase (ALT/SGPT) 17, Alkaline Phosphatase 65, C-Reactive Protein High Sensitivity 11.45H, Total Protein 6.1L, Albumin 3.5 Radiology PROCEDURE: CT left upper extremity with contrast. TECHNIQUE: Axial images were obtained through the left upper extremity after intravenous contrast and reformatted into coronal and sagittal oblique planes. Auto Exposure Controls were utilized during the CT exam to meet ALARA standards for radiation dose reduction. INDICATION: Abscess. FINDINGS: No comparison available. There is a wound involving the anterior aspect of the left elbow soft tissues. There is a fluid collection measuring 2.1 x 1.3 cm extending into the musculature deep to the soft tissue wound. The craniocaudal extent is 3.9 cm. Vasculature is patent. No osseous involvement is present. No osteomyelitis. There are enlarged left axillary lymph nodes measuring up to 15 mm. IMPRESSION: 1. Soft tissue wound anteriorly at the level of the left elbow with extension into the underlying musculature with pyomyositis and an intramuscular abscess measuring 1.3 x 2.1 x 3.9 cm. 2. Vasculature is patent and there is no involvement of the bone. Dictated by: Dictated on workstation # [id number] Assessment/Plan Assessment/Plan Assessment/Plan Left Upper arm Cellulitis Edema Plan is to continue IV fluids, IV ABX, pain control and elevate arm. The arm does not look as bad as the CT reading sounds. I am going to try another day of IV ABX and reassess tomorrow. To be safe I will make him npo after midnight just in case we decide to take him for I&D tomorrow. Clinical Quality Measures DVT/VTE Risk/Contraindication: Risk Factor Score Per Nursin RFS Level Per Nursing on Admit: 1=Low/No VTE PPX ROBYN SUÁREZ DO Dec 28, 2018 16:19
--- NOTE | 2018-12-28 16:44 | NUR ---
Vanco - Loading dose of 1500mg followed by 1250mg every 12 hours. Trough will be ordered to be drawn prior to the 4th dose.
--- NOTE | 2018-12-28 17:08 | History & Physical-Hospitalist ---
History of Present Illness HPI/Chief Complaint Jeffrey Gutierrez is a 33-year-old male who presented with a left arm abscess. He had been in the emergency room a few days ago and underwent an I&D. He was placed on Bactrim at that time and his abscess has failed to improve. He reports worsening erythema and pain. He reports having chills. He is unsure if he has had fevers. He denies any chest pain or shortness of breath. He denies any abdominal pain, nausea, or vomiting. Source: patient Exam Limitations: no limitations Date Seen 12/28/18 Time Seen by a Provider: 10:15 Attending Physician Radha Vences MD PCP No,Local Physician Referring Physician Date of Admission Dec 28, 2018 at 00:17 Home Medications & Allergies Home Medications Reviewed patient Home Medication Reconciliation performed by pharmacy medication reconciliations auto transmission technician and/or nursing. Patients Allergies have been reviewed. 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) Type Used: Cigarettes Physical Abuse Screen: No Sexual Abuse: No Recent Foreign Travel: No Contact w/other who traveled: No Recent Hopitalizations: No Recent Infectious Disease Expo: No Immunizations Up To Date Tetanus Booster (TDap): Less than 5yrs Seasonal Allergies Seasonal Allergies: No Past Medical History Surgeries: Orthopedic History of Blood Disorders: No Adverse Reaction to Blood [place]: No Family History Reviewed Nursing Family Hx Diabetes (grandparents), Other Conditions/Hx (Pt stated his parents do not have any medical problems) Review of Systems Constitutional: chills EENTM: no symptoms reported Respiratory: no symptoms reported Cardiovascular: no symptoms reported Gastrointestinal: no symptoms reported Genitourinary: no symptoms reported Musculoskeletal: no symptoms reported Skin: lesions, lumps, rash Psychiatric/Neurological: No Symptoms Reported Physical Exam Physical Exam Vital Signs Vital Signs - First Documented 12/27/18 12/28/18 22:21 00:32 Temp 36.8 Pulse 98 Resp 18 B/P (MAP) 126/81 (96) Pulse Ox 100 O2 Delivery Room Air Capillary Refill : Less Than 3 Seconds Height, Weight, BMI Height: 6'0" Weight: 150lbs. oz. [id number]; 21.46 BMI Method:Stated General Appearance: No Apparent Distress, WD/WN Respiratory: Lungs Clear, Normal Breath Sounds, No Respiratory Distress Cardiovascular: Regular Rate, Rhythm, No Edema, No Murmur Gastrointestinal: Normal Bowel Sounds, Non Tender, Soft Extremity: No Pedal Edema, Inflammation, Swelling, Other (left antecubital abscess with surrounding erythema and induration, yellow pustular discharge present) Skin: Erythema Lymphatic: Axilla Node Tender (L) Results Results/Procedures Labs Laboratory Tests 12/27/18 23:30 12/28/18 05:13 Patient resulted labs reviewed. Imaging: Reviewed Imaging Report Assessment/Plan Admission Diagnosis left arm abscess Admission Status: Observation Reason for Inpatient Admission: left arm abscess with worsening cellulitis requiring intravenous antibiotics and surgical consultation Assessment and Plan left arm abscess Cellulitis Recent wound culture growing staph aureus Started on clindamycin Susceptibilities pending Transition to vancomycin and until MRSA ruled out consult surgery Obtain CT extremity Diagnosis/Problems Diagnosis/Problems (1) Abscess of left arm Status: Acute (2) Cellulitis of left arm Status: Acute (3) Failure of outpatient treatment Status: Acute Clinical Quality Measures DVT/VTE Risk/Contraindication: Risk Factor Score Per Nursin RFS Level Per Nursing on Admit: 1=Low/No VTE PPX RADHA VENCES MD Dec 28, 2018 17:08
[2018-12-29] VITALS (12 sets, daily range): BP systolic 100–121; BP diastolic 66–86
[2018-12-29] MEDS: HYDROcodone/APAP 5 MG/325 MG (LORTAB) TAB PO PRN ×3 (01:16→19:19)
[2018-12-29] MEDS: NS IV 1000 ML 1,000 ML IV SCH ×5 (01:16→20:10)
[2018-12-29] MEDS: VANCOMYCIN 1250 MG/NS 250 ML IVPB IV SCH ×4 (03:15→14:49)
[2018-12-29] MEDS: KETOROLAC 30 MG/ML VIAL IVP PRN ×2 (04:13→16:59)
[2018-12-29] MEDS: fentaNYL INJECTION 100 MCG/2 ML AMP IV PRN ×4 (09:35→22:06)
--- NOTE | 2018-12-29 10:31 | Progress Note - Surgery ---
ASUNCION MORA,MED STUDENT 12/29/18 1031: Subjective Date Seen by a Provider: Dec 29, 2018 Time Seen by a Provider: 09:45 Subjective/Events-last exam Patient complains of increased pain since yesterday, rating it at 9/10 at this time. He thinks that it looks about the same as yesterday but he notes increasing feeling of "tightness" in the forearm distal to the abscess. He also reports chills. Denies fever or increased redness at the site. He has been NPO since midnight. Objective Exam Vital Signs Date Time Temp Pulse Resp B/P (MAP) Pulse Ox O2 Delivery O2 Flow Rate FiO2 12/29/18 08:00 36.9 71 20 109/66 (80) 100 Room Air 12/29/18 07:49 Room Air 12/29/18 04:27 36.9 86 16 109/70 (83) 100 Room Air 12/29/18 00:31 37.0 74 16 118/73 (88) 97 Room Air 12/28/18 20:00 Room Air 12/28/18 19:40 36.2 88 20 119/57 (77) 99 Room Air 12/28/18 16:13 37.3 67 20 135/70 (91) 100 Room Air 12/28/18 12:00 36.4 69 18 103/58 (73) 100 Room Air I & O 12/29/18 07:00 Intake Total 1850 ml Balance 1850 ml Capillary Refill : Less Than 3 Seconds General Appearance: No Apparent Distress, WD/WN Respiratory: No Accessory Muscle Use, No Respiratory Distress Cardiovascular: No Edema, Normal Peripheral Pulses Extremity: No Pedal Edema, Inflammation, Swelling, Other (left antecubital abscess with surrounding erythema and induration, erythema does not appear to extend beyond outline drawn yesterday, white purulent discharge present) Neurologic/Psychiatric: Alert, Normal Mood/Affect Skin: Erythema Assessment/Plan Assessment/Plan Assessment/Plan Left Upper arm Cellulitis Edema Culture and sensitivity revealed clindamycin resistance so he was switched to Vancomycin. Continue IV fluids, IV Vancomycin, pain control, and arm elevation. WBC count normal yesterday at 9.8 Clinical Quality Measures DVT/VTE Risk/Contraindication: Risk Factor Score Per Nursin RFS Level Per Nursing on Admit: 1=Low/No VTE PPX BHAVIN ODELL DO 12/29/18 1201: Subjective Time Seen by a Provider: 11:31 Subjective/Events-last exam Pt seen and examined, states arm is more tense and tender. Review of Systems General: Malaise Pulmonary: No Dyspnea, No Cough Cardiovascular: No: Chest Pain, Palpitations Objective Exam Extremity: Other (left antecubital abscess with surrounding erythema and induration, erythema does not appear to extend beyond outline drawn yesterday, fibrinous material at skin edge) Assessment/Plan Assessment/Plan Assessment/Plan Left Upper arm - looking worse, plan to take him to OR for I&D with possible packing and debridement. Discussed risks and complications of procedure with pt; including but not limited to pain, bleeding, infection and will need to leave incision open. All questions answered to his satisfaction. Supervisory-Addendum Brief Verification & Attestation Participated in pt care: history, MDM, physical Personally performed: exam, history, MDM Care discussed with: Medical Student Procedures: n/a Verification and Attestation of Medical Student E/M Service A medical student performed and documented this service in my presence. I reviewed and verified all information documented by the medical student and made modifications to such information, when appropriate. I personally performed the physical exam and medical decision making. Bhavin Odell, Dec 29, 2018,12:10 ASUNCION MORA,MED STUDENT Dec 29, 2018 10:31 BHAVIN ODELL DO Dec 29, 2018 12:01
[2018-12-29] MEDS ORDERED: ONDANSETRON 4 MG/2 ML (SDV) Z0FRAN ONE (12:30)
[2018-12-29] MEDS ORDERED: proPOfol 200 MG/20 ML (DIPRIVAN) VIAL IV ONE (12:30)
[2018-12-29] MEDS ORDERED: fentaNYL INJECTION 100 MCG/2 ML AMP ONE (12:30)
[2018-12-29] MEDS ORDERED: LIDOCAINE PF 2% 5 ML (XYLOCAINE) VIAL ONE (12:30)
--- NOTE | 2018-12-29 12:30 | NUR ---
PT LEFT FLOOR VIA STRETCHER IN ROUTE TO SURGERY FOR PROCEDURE ACCOMPANIED BY OR STAFF. THIS RN WILL AWAIT PT RETURN.
[2018-12-29] MEDS ORDERED: MIDAZOLAM 2 MG/2 ML (VERSED) VIAL ONE (12:31)
[2018-12-29] MEDS ORDERED: HYDROmorphone 2 MG/ML VIAL (DILAUDID) ONE (12:32)
[2018-12-29] MEDS ORDERED: morphine INJ 10 MG/ML 1ML (SYR OR VIAL) ONE (12:32)
[2018-12-29] MEDS ORDERED: SEVOFLURANE (ULTANE) 15 ML INHAL SOLN ONE ×3 (12:36→14:12)
[2018-12-29] MEDS ORDERED: LACTATED RINGERS 1,000 ML IV PRN (13:11)
--- NOTE | 2018-12-29 13:29 | Progress Note-Post Operative ---
Post-Operative Progess Note Surgeon (s)/Cardboard Cutter (s) Surgeon ROBYN SUÁREZ DO Cardboard Cutter: SANDRA MoctezumaII Pre-Operative Diagnosis Left upper extremity Cellulitis possible abscess Post-Operative Diagnosis Same with abscess Procedure & Operative Findings Date of Procedure 12/29/18 Procedure Performed/Findings I&D with debridement and packing Anesthesia Type GET Estimated Blood Loss Estimated blood loss (mL): scant Specimens/Packing Specimens Removed fluid culture ROBYN SUÁREZ DO Dec 29, 2018 13:29
[2018-12-29] MEDS ORDERED: PROMETHAZINE INJ 25 MG/ML (PHENERGAN) AMP IVP ONE (13:45)
[2018-12-29] MEDS ORDERED: HYDROmorphone 2 MG/ML VIAL (DILAUDID) IV ONE (13:45)
[2018-12-29] MEDS ORDERED: ONDANSETRON 4 MG/2 ML (SDV) Z0FRAN IVP PRN (13:45)
[2018-12-29] MEDS ORDERED: MEPERIDINE (DEMEROL) INJ 50 MG/ML IVP ONE (13:45)
[2018-12-29] MEDS ORDERED: morphine INJ 10 MG/ML 1ML (SYR OR VIAL) IVP ONE (13:45)
--- NOTE | 2018-12-29 14:35 | NUR ---
PT TO ROOM 424 VIA STRETCHER ACCOMPANIED BY OR STAFF. REPORT RECEIVED FROM OR STAFF. LR INFUSING IN R AC WITH 250ML LEFT IN BAG. PT RESTING EYES CLOSED, RESPIRATIONS EVEN AND UNLABORED. DRESSING TO LEFT FOREARM DRY AND INTACT. CAP REFILL TO LEFT HAND LESS THAN 3 SEC. THIS RM WILL ASSUME CARE OF PATIENT.
--- NOTE | 2018-12-29 15:40 | NUR ---
DR SUÁREZ NOTIFIED BY THIS RN IN REGARDS TO PT DIET. NEW ORDER RECEIVED.
--- NOTE | 2018-12-29 15:49 | OPERATIVE REPORT ---
DATE OF SERVICE: PREOPERATIVE DIAGNOSIS: Left upper extremity cellulitis with possible abscess. POSTOPERATIVE DIAGNOSIS: Left upper extremity cellulitis with abscess. PROCEDURE: Incision and drainage with debridement and packing. SURGEON: Robyn Odell DO FIRST ASSISTANTS: Shasha Estrada MS3 and Sandy Ireland MS3 SPECIMEN: Purulent fluid. BLOOD LOSS: Scant. FLUIDS: Per anesthesia. POSTOPERATIVE CONDITION: Stable. INDICATION FOR PROCEDURE: The patient is a 33-year-old male who has a left upper extremity swelling, cellulitis, possibly an abscess, arm was getting a little worse and needed to go for incision and drainage. FINDINGS: The patient had an abscess that was under the muscle, culture obtained. PROCEDURE NOTE: After informed consent was obtained, the patient was brought to the operating room, placed on the operating table in supine position, sterilely prepped and draped in normal fashion. An incision was made in the left forearm, ventral aspect approximately 8 cm incision carried down through the skin into subcutaneous tissue, then deepened down through the subcutaneous tissue and through the muscle and once through the muscle got an immediate release of whitish purulent fluid, did a culture of this and then with blunt dissection, opened this up to release all of pocket of purulence, did some rough debridement with a 4 x 4 in the muscle, copiously irrigated with normal saline and then elected to pack with iodoform packing half inch packing was used, pack this open and then area was cleaned and dried, dressing placed. The patient tolerated the procedure. Sponge, instrument and needle count correct at the end of the case. Job ID: [id number] DocumentID: [id number] Dictated Date: 12/29/2018 13:26:39 Dinkey Dispatcher Date: 12/29/2018 15:48:11 Dictated By: ROBYN ODELL DO [facility]
[2018-12-29] MEDS ORDERED: NICOTINE 14 MG (NICODERM) PATCH TD ONE (17:00)
[2018-12-29] MEDS ORDERED: NICOTINE 2 MG GUM (NICORETTE) PO PRN (17:00)
--- NOTE | 2018-12-29 17:00 | Progress Note - Hospitalist ---
Subjective HPI/CC On Admission Date Seen by Provider: Dec 29, 2018 Time Seen by Provider: 10:00 left arm abscess Subjective/Events-last exam He reports that the pain and tightness in his forearm again worse. He has not noticed any worsening of the cellulitis. The wound continues to drain carlos pus. He does not believe that he has had any fevers. He denies any chest pain or shortness of breath. Objective Exam Vital Signs Vital Signs Date Time Temp Pulse Resp B/P (MAP) Pulse Ox O2 Delivery O2 Flow Rate FiO2 12/29/18 16:00 37.0 71 18 121/80 (94) 96 Room Air 12/29/18 14:15 2 Capillary Refill : Less Than 3 Seconds General Appearance: No Apparent Distress, WD/WN HEENT: PERRL/EOMI, Pharynx Normal Neck: Normal Inspection, Supple Respiratory: Lungs Clear, Normal Breath Sounds, No Respiratory Distress Cardiovascular: Regular Rate, Rhythm, No Edema, No Murmur Gastrointestinal: Normal Bowel Sounds, Non Tender, Soft Extremity: Inflammation, Swelling, Other (Left antecubital abscess draining carlos pus, surrounding erythema and tenderness with induration) Neurologic/Psychiatric: Alert, Oriented x3, No Motor/Sensory Deficits, Normal Mood/Affect Skin: Warm/Dry, Other (See "extremity" above) Lymphatic: Axilla Node Tender (L) Results/Procedures Lab Patient resulted labs reviewed. Imaging: Reviewed Imaging Films, Reviewed Imaging Report Assessment/Plan Assessment and Plan Assess & Plan/Chief Complaint Left arm abscess Cellulitis Wound culture revealed MRSA Continue vancomycin CT scan revealed intramuscular abscess Surgery planning for I&D today Diagnosis/Problems Diagnosis/Problems (1) Abscess of left arm Status: Acute (2) Cellulitis of left arm Status: Acute (3) Failure of outpatient treatment Status: Acute Clinical Quality Measures DVT/VTE Risk/Contraindication: Risk Factor Score Per Nursin RFS Level Per Nursing on Admit: 1=Low/No VTE PPX RICK VENCES MD Dec 29, 2018 17:00
[2018-12-30] MEDS: KETOROLAC 30 MG/ML VIAL IVP PRN ×2 (00:01→12:36)
[2018-12-30 00:36] VITALS: BP 108/70
[2018-12-30] MEDS ORDERED: TROUGH ORDER-PHARMACY XX NR (02:00)
[2018-12-30] MEDS: VANCOMYCIN 1250 MG/NS 250 ML IVPB IV SCH ×6 (02:45→19:41)
[2018-12-30] MEDS: NS IV 1000 ML 1,000 ML IV SCH ×3 (02:45→19:41)
[2018-12-30] MEDS: fentaNYL INJECTION 100 MCG/2 ML AMP IV PRN ×2 (05:51→08:32)
[2018-12-30 08:00] VITALS: BP 118/70
[2018-12-30] MEDS: NICOTINE 14 MG (NICODERM) PATCH TD SCH (08:32)
--- NOTE | 2018-12-30 08:33 | NUR ---
VANCO TROUGH 9, WILL CHANGE DOSING TO Q8H CRCL >100. RECHECK TROUGH 12/31 @1000.
[2018-12-30] MEDS ORDERED: ACET-93 PO (11:16)
[2018-12-30] MEDS ORDERED: CALC300T4 PO (11:16)
[2018-12-30] MEDS ORDERED: IBUP-2185 PO (11:16)
--- NOTE | 2018-12-30 11:17 | NUR ---
SPOKE WITH PT WELL GOING OVER THE EXTERNAL MED HISTORY TO COMPLETE THE MED REC. PT STATES HE DOES NOT TAKE ANY PRESCRIPTION MEDS. OTC MEDS: APAP 500M TABS Q 8 H PRN IBUPROFEN 200M TABS Q 8 H PRN TUMS: UD
--- NOTE | 2018-12-30 11:36 | Progress Note - Surgery ---
ASUNCION MORA,MED STUDENT 12/30/18 1135: Subjective Date Seen by a Provider: Dec 30, 2018 Time Seen by a Provider: 07:55 Subjective/Events-last exam Mr. Gutierrez complains of increased pain, swelling, and tightness in the left arm today. He has also noticed some diminished sensation and swelling in the left hand which began this morning. He had a fever of 38 C this morning as well. Objective Exam Vital Signs Date Time Temp Pulse Resp B/P (MAP) Pulse Ox O2 Delivery O2 Flow Rate FiO2 12/30/18 10:44 Room Air 12/30/18 08:00 Room Air 12/30/18 08:00 37.8 88 22 118/70 (86) 96 Room Air 12/30/18 00:36 38.0 80 16 108/70 (83) 99 Room Air 12/29/18 19:40 Room Air 12/29/18 16:00 37.0 71 18 121/80 (94) 96 Room Air 12/29/18 14:35 37.1 20 117/86 (96) 96 Room Air 12/29/18 14:35 Room Air 12/29/18 14:30 Room Air 12/29/18 14:20 20 117/84 (95) 96 Room Air 12/29/18 14:15 OxyMask 2 12/29/18 14:10 20 117/82 (94) 99 OxyMask 2 12/29/18 14:00 OxyMask 6 12/29/18 14:00 20 113/77 (89) 99 OxyMask 3 12/29/18 13:50 20 110/74 (86) 99 OxyMask 5 12/29/18 13:45 OxyMask 6 12/29/18 13:40 20 110/74 (86) 99 OxyMask 6 12/29/18 13:40 OxyMask 6 12/29/18 13:37 37.1 20 100/66 (77) 98 OxyMask 6 12/29/18 12:00 37.2 80 20 112/75 (87) 100 Room Air I & O 12/30/18 07:00 Intake Total 6877.5 ml Balance 6877.5 ml Capillary Refill : Less Than 3 Seconds General Appearance: No Apparent Distress, WD/WN HEENT: Pharynx Normal Respiratory: No Accessory Muscle Use, No Respiratory Distress Cardiovascular: Other (Left radial pulse difficult to palpate which may be secondary to edema) Extremity: Inflammation, Swelling, Other (Left antecubital abscess dressing appears clean and dry) Neurologic/Psychiatric: Alert, Normal Mood/Affect, Sensory Deficit (slightly diminished sensation in left hand) Skin: Warm/Dry, Other (See "extremity" above) Results Lab Laboratory Tests 12/30/18 01:52: Vancomycin Level Trough 9.0L Assessment/Plan Assessment/Plan Assessment/Plan Left antecubital abscess S/P I&D yesterday, packed with iodoform gauze Continue antibiotics and pain control Consider ortho consult for possible left forearm fasciotomy Clinical Quality Measures DVT/VTE Risk/Contraindication: Risk Factor Score Per Nursin RFS Level Per Nursing on Admit: 1=Low/No VTE PPX BHAVIN SUÁREZ DO 12/30/18 1437: Subjective Time Seen by a Provider: 14:21 Subjective/Events-last exam Pt seen, sleeping but easily arousable. He states pain is better than this am and swelling has dorian down with elevation of arm. Objective Exam Extremity: Other (Left antecubital dressing intact, hand actually looks less swollen compared to yesterday) Assessment/Plan Assessment/Plan Assessment/Plan Pt hand appears to be improving. Appreciate ortho consult. Change packing daily and continue IV ABX for one more day; then may be able to switch over to oral ABX and send home. Can change ABX if microbiology an sensitivity comes back diffently. Supervisory-Addendum Brief Verification & Attestation Participated in pt care: history, MDM, physical Personally performed: exam, history, MDM Care discussed with: Medical Student Procedures: n/a Verification and Attestation of Medical Student E/M Service A medical student performed and documented this service in my presence. I reviewed and verified all information documented by the medical student and made modifications to such information, when appropriate. I personally performed the physical exam and medical decision making. Bhavin Suárez, Dec 30, 2018,14:37 ASUNCION MORA,MED STUDENT Dec 30, 2018 11:35 BHAVIN SUÁREZ DO Dec 30, 2018 14:37
--- NOTE | 2018-12-30 13:54 | Consultation - Ortho ---
Consult - Ortho Subjective Date of Exam 12/30/18 Chief Complaint Abscess left elbow/proximal forearm HPI/Events since last exam Mr. Gutierrez is a 33-year-old white male who stated approximate 7 days ago he noted some redness in the anterior aspect of his left elbow/proximal forearm. He thought he was bit by a spider. He denies IV drug use. No other injuries. 2 days later he was seen in the emergency room after the infection/bite came to a head. He had an I&D and was placed on oral antibiotics. Due to worsening of the pain, redness and swelling he came back to the emergency room and was admitted for IV antibiotics. He was seen by Dr. Odell and taken to the OR for incision and drainage of the abscess which was intramuscular. That was yesterday. This morning he had increased pain, swelling and numbness and tingling in the thumb, index and middle fingers. Dr. Odell asked me to see the patient to evaluate the arm for possible compartment syndrome. The patient states since he's been elevating the arm in the past she is numbness and tingling has resolved and the pain and swelling have decreased. He also states that the redness has improved since the surgery. Medical, Surgical History Reviewed and no additions or changes Social History Reviewed and no additions or changes Family History Reviewed and no additions or changes Review of Systems Reviewed and no additions or changes Allergies: Coded Allergies: amoxicillin (Verified Allergy, Unknown, 09/15/18) clavulanic acid (Verified Allergy, Unknown, 09/15/18) Uncoded Allergies: ARYTHROMYCIN (Allergy, Unknown, 09/15/18) PCN (Allergy, Unknown, 09/15/18) Home Meds Reported Medications Calcium Carbonate (Tums) 300 Mg Tab.chew, 600 MG PO Q4H PRN for HEARTBURN, TAB 12/30/18 Ibuprofen (Ibuprofen) 200 Mg Capsule, 600 MG PO Q8H PRN for PAIN-MILD, CAP 12/30/18 Acetaminophen (Acetaminophen) 500 Mg Tablet, 1500 MG PO Q8H PRN for PAIN-MILD, TAB 12/30/18 Discontinued Scripts Sulfamethoxazole/Trimethoprim (Bactrim Ds Tablet) 1 Each Tablet, 1 EACH PO TID, #21 TAB Increased frequency due to location and severity of infection Prov:CLAU BOURGEOIS MD 12/26/18 Doxycycline Hyclate (Doxycycline Hyclate) 100 Mg Capsule, 100 MG PO BID, #14 CAP 0 Refills Prov:KELSEY JACOB VITOR 09/15/18 Sulfamethoxazole/Trimethoprim (Bactrim Ds Tablet) 1 Each Tablet, 1 EACH PO BID, #14 TAB 0 Refills Prov:KELSEY JACOB VITOR 09/15/18 Objective Exam Constitutional: [] HEENT: [] Neck: [] Cardiovascular: [] Respiratory: [] Gastrointestinal: [] Genitourinary: [] Skin: [] Back/Spine: [] Extremities: [] Exam of the left upper extremity-the dressing was removed. I did not remove the packing. He has an incision over the anterior elbow proximal forearm radial volar aspect. This associated redness and induration in this area that extends proximally above the elbow and distally down to the mid forearm. He can flex and extend the elbow without pain. He lacks about 30 of full extension and has flexion to within about 10-20 of full flexion. He has full pronation supination forearm without pain. His extensor muscular compartments are soft as well as the volar compartments/musculature. He has very good radial pulse. He has good capillary refill of his fingers and thumb with normal sensation in fingers and thumb. He has a minimally positive Tinel's over the median nerve at the wrist. Negative over the ulnar nerve at the wrist. With active and passive flexion and extension of the wrist and fingers he has no forearm pain. He has full motion of the fingers in flexion and extension and has full flexion-extension of the wrist and thumb. Again all without pain. Neurologic: [] Psychiatric: [] Hematologic/lymphatic/immunologic: [] Vital Signs Vital Signs Date Time Temp Pulse Resp B/P (MAP) Pulse Ox O2 Delivery O2 Flow Rate FiO2 12/30/18 10:44 Room Air 12/30/18 08:00 Room Air 12/30/18 08:00 37.8 88 22 118/70 (86) 96 Room Air 12/30/18 00:36 38.0 80 16 108/70 (83) 99 Room Air 12/29/18 19:40 Room Air 12/29/18 16:00 37.0 71 18 121/80 (94) 96 Room Air 12/29/18 14:35 37.1 20 117/86 (96) 96 Room Air 12/29/18 14:35 Room Air 12/29/18 14:30 Room Air 12/29/18 14:20 20 117/84 (95) 96 Room Air 12/29/18 14:15 OxyMask 2 12/29/18 14:10 20 117/82 (94) 99 OxyMask 2 12/29/18 14:00 OxyMask 6 12/29/18 14:00 20 113/77 (89) 99 OxyMask 3 12/29/18 13:50 20 110/74 (86) 99 OxyMask 5 I & O 12/30/18 07:00 Intake Total 6877.5 ml Balance 6877.5 ml Lab Results Laboratory Tests 12/30/18 01:52: Vancomycin Level Trough 9.0L Assessment and Plan Assessment Status post incision and drainage of abscess left proximal forearm Problem List No changes Plan Continue present treatment. I talked to Dr. Odell and I see no evidence of compartment syndrome. I think the altered sensation is secondary to swelling as I see no evidence of compartment syndrome. His compartments are all soft and he has no signs of increasing compartment pressure. His sensation resolve with elevation of the day and an arm. Same with swelling. Final Diagonsis Abscess left proximal forearm status post incision and drainage Level of the visit: Level 3 KAYLEEN VIVEROS MD Dec 30, 2018 13:54
--- NOTE | 2018-12-30 14:46 | Anesthesia-General Post-Op ---
General Patient Condition Mental Status/LOC: Same as Preop Cardiovascular: Satisfactory Nausea/Vomiting: Absent Respiratory: Satisfactory Pain: Controlled Complications: Absent Post Op Complications Complications None Follow Up Care/Instructions Patient Instructions None needed. Anesthesia/Patient Condition Patient Condition Patient is doing well, no complaints, stable vital signs, no apparent adverse anesthesia problems. LLOYD REHMAN DO Dec 30, 2018 14:46
--- NOTE | 2018-12-30 14:47 | Progress Note - Hospitalist ---
Subjective HPI/CC On Admission Date Seen by Provider: Dec 30, 2018 Time Seen by Provider: 12:30 left arm abscess Subjective/Events-last exam Pt reported "numbness" in his hand earlier. Discussed with patient and sensation intact, pulse intact, and pain improved. RN states "numbness" was that his fingers were swollen and he couldn't make a fist. Otherwise no complaints. Objective Exam Vital Signs Vital Signs Date Time Temp Pulse Resp B/P (MAP) Pulse Ox O2 Delivery O2 Flow Rate FiO2 12/30/18 10:44 Room Air 12/30/18 08:00 37.8 88 22 118/70 (86) 96 12/29/18 14:15 2 Capillary Refill : Less Than 3 Seconds General Appearance: No Apparent Distress, WD/WN Respiratory: Lungs Clear, No Accessory Muscle Use, No Respiratory Distress Cardiovascular: Regular Rate, Rhythm, No Murmur Extremity: Other (left arm dressed in surgical wrapping, erythema noted around dermacation) Results/Procedures Lab Patient resulted labs reviewed. Imaging: Reviewed Imaging Films, Reviewed Imaging Report Assessment/Plan Assessment and Plan Assess & Plan/Chief Complaint Left arm cellulitis Continue IV abx "numbness" likely due to edema and not compartment syndrome Surgery consulted, POD #1 from I&D and debridement Continue Fentanyl for pain Await cultures from OR Diagnosis/Problems Diagnosis/Problems (1) Cellulitis of left arm Status: Acute (2) Failure of outpatient treatment Status: Acute (3) Abscess of left arm Status: Acute Clinical Quality Measures DVT/VTE Risk/Contraindication: Risk Factor Score Per Nursin RFS Level Per Nursing on Admit: 1=Low/No VTE PPX BLESSING MOORE MD Dec 30, 2018 14:47
[2018-12-30 16:00] VITALS: BP 111/64
[2018-12-30] MEDS: LACTOBACILLUS ACIDOPHILUS (PROBIOTIC) CAPSULE PO SCH (17:41)
[2018-12-30] MEDS: HYDROcodone/APAP 5 MG/325 MG (LORTAB) TAB PO PRN (19:42)
[2018-12-31 00:05] VITALS: BP 116/68
[2018-12-31] MEDS: fentaNYL INJECTION 100 MCG/2 ML AMP IV PRN (01:08)
[2018-12-31] MEDS: NS IV 1000 ML 1,000 ML IV SCH ×2 (02:54→10:59)
[2018-12-31] MEDS: VANCOMYCIN 1250 MG/NS 250 ML IVPB IV SCH ×4 (02:55→11:53)
[2018-12-31] MEDS: LACTOBACILLUS ACIDOPHILUS (PROBIOTIC) CAPSULE PO SCH ×3 (06:41→16:04)
[2018-12-31 08:00] VITALS: BP 109/70
--- NOTE | 2018-12-31 08:48 | Progress Note - Surgery ---
CÉSAR CONTRERAS,MED STUDENT 12/31/18 0848: Subjective Date Seen by a Provider: Dec 31, 2018 Time Seen by a Provider: 08:05 Subjective/Events-last exam Reports continued tenderness of L arm this am, but he thinks the swelling and tightness is improving. States the wound is still bleeding through the dressing. Objective Exam Vital Signs Date Time Temp Pulse Resp B/P (MAP) Pulse Ox O2 Delivery O2 Flow Rate FiO2 12/31/18 00:05 37.2 84 18 116/68 (84) 98 Room Air 12/30/18 20:00 Room Air 12/30/18 16:00 37.7 81 16 111/64 (80) 100 Room Air 12/30/18 10:44 Room Air I & O 12/31/18 07:00 Intake Total 2480 ml Balance 2480 ml Capillary Refill : Less Than 3 Seconds General Appearance: No Apparent Distress, WD/WN HEENT: PERRL/EOMI Respiratory: No Accessory Muscle Use, No Respiratory Distress Cardiovascular: Regular Rate, Rhythm, No Murmur, Normal Peripheral Pulses Extremity: Other (left arm dressed in surgical wrapping, tender to palpation, mild bleeding through dressing) Neurologic/Psychiatric: Alert, Normal Mood/Affect; No Motor Weakness (Upper extremity muscle strength +5/5 bilaterally); Sensory Deficit (slightly diminished sensation in left hand) Skin: Warm/Dry, Other (See "extremity" above) Results Lab Microbiology 12/29/18 MRSA Screen - Final, Complete 12/29/18 Gram Stain, Resulted Pending 12/29/18 Anaerobic Culture, Resulted Pending 12/29/18 Surgical Culture - Preliminary, Resulted Staphylococcus aureus Assessment/Plan Assessment/Plan Assessment/Plan Pt hand appears to be improving. Continue to clean and change dressing regularly. If improvement continues, switch to oral antibiotics and discharge home. Clinical Quality Measures DVT/VTE Risk/Contraindication: Risk Factor Score Per Nursin RFS Level Per Nursing on Admit: 1=Low/No VTE PPX BHAVIN ODELL DO 12/31/182102: Subjective Time Seen by a Provider: 12:52 Subjective/Events-last exam Pt seen and examined. States he is doing better and pain is improving. Review of Systems General: No Chills, No Night Sweats Pulmonary: No Dyspnea, No Cough Objective Exam Extremity: Other (left arm less swollen compared to yesterday and erythema less as well) Neurologic/Psychiatric: Sensory Deficit (slightly diminished sensation in left hand, but improved compared to yesterday) Assessment/Plan Assessment/Plan Assessment/Plan Pt is improving, switch to oral ABX, told to change dressing daily (can go to my clinic or wound care). Pt should follow up as an outpt. Supervisory-Addendum Brief Verification & Attestation Participated in pt care: history, MDM, physical Personally performed: exam, history, MDM Care discussed with: Medical Student Procedures: n/a Verification and Attestation of Medical Student E/M Service A medical student performed and documented this service in my presence. I reviewed and verified all information documented by the medical student and made modifications to such information, when appropriate. I personally performed the physical exam and medical decision making. Bhavin Odell, Dec 31, 2018,21:06 CÉSAR CONTRERAS,MED STUDENT Dec 31, 2018 08:48 BHAVIN ODELL DO Dec 31, 2018 21:03
[2018-12-31] MEDS: NICOTINE 14 MG (NICODERM) PATCH TD SCH (09:19)
[2018-12-31] MEDS ORDERED: TROUGH ORDER-PHARMACY XX NR (10:00)
--- NOTE | 2018-12-31 10:01 | NUR ---
prior to a.m. medications b/p was 120/59 pulse was 105 Addendum: 12/31/18 at 1004 by NARENDRA LAMAR RN 109/70 and 72 pulse
[2018-12-31] MEDS ORDERED: SULF1TAB35 PO (10:42)
--- NOTE | 2018-12-31 10:45 | Discharge Summary ---
Diagnosis/Chief Complaint Date of Admission Dec 30, 2018 at 15:20 Date of Discharge Discharge Date: Dec 31, 2018 Admission Diagnosis left arm abscess Primary Care No,Local Physician Discharge Diagnosis (1) Cellulitis of left arm Status: Acute (2) Failure of outpatient treatment Status: Acute (3) Abscess of left arm Status: Acute Discharge Summary Procedures/Consulations Dr Odell- Surgery Discharge Physical Exam Allergies: Coded Allergies: amoxicillin (Verified Allergy, Unknown, 09/15/18) clavulanic acid (Verified Allergy, Unknown, 09/15/18) Uncoded Allergies: ARYTHROMYCIN (Allergy, Unknown, 09/15/18) PCN (Allergy, Unknown, 09/15/18) Vitals & I&Os Vital Signs Date Time Temp Pulse Resp B/P (MAP) Pulse Ox O2 Delivery O2 Flow Rate FiO2 12/31/18 15:59 37.0 72 18 109/70 97 Room Air 12/31/18 08:00 2.00 General Appearance: No Apparent Distress, WD/WN Cardiovascular: Regular Rate, Rhythm, No Murmur Extremity: Other (improving erythema and edema in the left upper extremity, wrapped in gauze which is clean and dry) Skin: Tattoos/Piercings Neurologic/Psychiatric: Alert, Oriented x3 Hospital Course Pt was admitted for cellulitis and abscess formation following bedside I&D and outpatient antibiotics in the ER. He underwent I&D and debridement with Dr Odell on 12/29. Cultures from both the ER visit and the OR revealed MRSA. HE was treated with Vanc while admitted and transitioned to Bactrim for outpatient management per sensitivities. He is to follow up with Dr Odell as an outpatient. Labs (last 24 hrs) Microbiology 12/29/18 MRSA Screen - Final, Complete 12/29/18 Gram Stain - Final, Resulted 12/29/18 Anaerobic Culture, Resulted Pending 12/29/18 Surgical Culture - Final, Resulted Staphylococcus aureus Patient resulted labs reviewed. Imaging: Reviewed Imaging Films, Reviewed Imaging Report Discussion & Recommendations Discharge Planning: <30 minutes discharge planning Discharge Home Medications: Active Scripts Active Hydrocodone/Acetaminophen 5/325mg Tablet (Acetaminophen/Hydrocodone Bitart) 1 Tab Tab 1-2 Tab PO Q4H PRN Bactrim Ds Tablet (Sulfamethoxazole/Trimethoprim) 1 Each Tablet 1 Each PO BID Reported Tums (Calcium Carbonate) 300 Mg Tab.chew 600 Mg PO Q4H PRN Ibuprofen 200 Mg Capsule 600 Mg PO Q8H PRN Instructions to patient/family Please see electronic discharge instructions given to patient. Clinical Quality Measures DVT/VTE Risk/Contraindication: Risk Factor Score Per Nursin RFS Level Per Nursing on Admit: 1=Low/No VTE PPX BLESSING MOORE MD Dec 31, 2018 10:45
--- NOTE | 2018-12-31 11:39 | NUR ---
Dressing change completed at this time. Patient tolerated well. packing removed and replaced by this RN.
[2018-12-31] MEDS: HYDROcodone/APAP 5 MG/325 MG (LORTAB) TAB PO PRN (11:58)
--- NOTE | 2018-12-31 13:34 | Discharge Inst-Simple/Standard ---
Discharge Inst-Standard Patient Instructions/Follow Up Plan of Care/Instructions/FU: Please continue to take your medications as written. Please follow up with a PCP in the next week to follow up this stay. Please avoid getting anything in your wound. Activity as Tolerated: Yes Discharge Diet: No Restrictions Return to The Hospital For: Fever, confusion, pain, worsening redness or swelling, or if you feel you are getting worse. BLESSING MOORE MD Dec 31, 2018 13:34
[2018-12-31] MEDS ORDERED: ACHD5005 PO (15:07)
[2018-12-31 15:59] VITALS: BP 109/70
== END 2018-12-31 16:15 | disposition home or self-care (01) | DRG 581 ==
LOC: EDUNIT# 21:47 → ER 21:48 → 4TH 12-28 00:17 → OBSVTOIN 12-30 15:20 → 4TH 12-31 13:34
PROVIDERS: ADMIT Family Medicine; ATTEND Family Medicine
PROC: 0KBB0ZX Excision of Left Lower Arm and Wrist Muscle, Open Approach, Diagnostic (ICD-10-PCS; principal; 2018-12-29 12:54)
DX: L03.114 Cellulitis of left upper limb (principal); L02.414 Cutaneous abscess of left upper limb; B95.62 Methicillin resistant Staphylococcus aureus infection as the cause of diseases classified elsewhere; F17.210 Nicotine dependence, cigarettes, uncomplicated; Z88.0 Allergy status to penicillin; Z88.1 Allergy status to other antibiotic agents
CPT/HCPCS: 36415; 73201; 80053; 80202; 85025; 86141; 87070; 87075; 87077; 87081; 87205; G0378

== ENCOUNTER 2019-04-30 20:47 | Emergency (ER) | payer SELFPAY ==
[~2019-04-30] VITALS: Ht 182.8 cm; Wt 70.3 kg
[~2019-04-30 20:47] MED LIST changes: +ACET-93 PO; +ACHD5005 PO; +CALC300T4 PO; +IBUP-2185 PO
[2019-04-30] MEDS ORDERED: ONDANSETRON 4 MG/2 ML (SDV) Z0FRAN ONE (21:37)
[2019-04-30] MEDS ORDERED: DOXYCYCLINE INJECTION 100 MG in NS (IVPB) 100 ML IV ONE (21:45)
[2019-04-30] MEDS ORDERED: fentaNYL INJECTION 100 MCG/2 ML AMP IVP ONE (21:45)
[2019-04-30] MEDS ORDERED: CLINDAMYCIN 900 MG/50 ML IVPB 50 ML IV ONE (21:45)
[2019-04-30] MEDS ORDERED: RX-HYDROCODONE/APAP 5/325 MG #4 TAB PK PO PRN (21:45)
[2019-04-30] MEDS ORDERED: LIDOCAINE 1% INJ 20 ML 20 ML VIAL INJ ONE (21:45)
[2019-04-30] MEDS ORDERED: ONDANSETRON 4 MG/2 ML (SDV) Z0FRAN IVP ONE (22:00)
[2019-04-30 22:02] LABS: BASOPHILS # (AUTO) 0.1 10^3/uL (0.0-0.1); BASOPHILS % (AUTO) 1 % (0-10); EOSINOPHILS # (AUTO) 0.2 10^3/uL (0.0-0.3); EOSINOPHILS % (AUTO) 3 % (0-10); HEMATOCRIT 40 % (40-54); HEMOGLOBIN 13.2 G/DL (13.3-17.7); LYMPHOCYTES # (AUTO) 2.1 X 10^3 (1.0-4.0); LYMPHOCYTES % (AUTO) 27 % (12-44); MEAN CORPUSCULAR HEMOGLOBIN 29 PG (25-34); MEAN CORPUSCULAR HGB CONC 33 G/DL (32-36); MEAN CORPUSCULAR VOLUME 88 FL (80-99); MEAN PLATELET VOLUME 10.3 FL (7.4-10.4); MONOCYTES % (AUTO) 13 % (0-12); NEUTROPHILS # (AUTO) 4.5 X 10^3 (1.8-7.8); NEUTROPHILS % (AUTO) 57 % (42-75); PLATELET COUNT 262 10^3/uL (130-400); RED CELL DISTRIBUTION WIDTH 13.4 % (10.0-14.5); WHITE BLOOD COUNT 7.9 10^3/uL (4.3-11.0)
--- NOTE | 2019-04-30 22:17 | ED Integumentary General ---
General Chief Complaint: Skin/Wound Problems Stated Complaint: LEFT HAND SWOLLEN Nursing Triage Note: Pt c/o L middle finger swelling and pain. Pt reports waking up night before last and felt burning in finger. Hand is now swollen, red and finger is draining. Pt reports nausea and headache. Source: patient Exam Limitations: no limitations History of Present Illness Date Seen by Provider: Apr 30, 2019 Time Seen by Provider: 21:40 Initial Comments Left middle finger swollen x2-3 days, no kown cause. Timing/Duration: constant Severity: moderate Location: hands Possible Cause: no cause identified Associated Symptoms: denies symptoms Allergies and Home Medications Allergies Coded Allergies: amoxicillin (Verified Allergy, Unknown, 09/15/18) clavulanic acid (Verified Allergy, Unknown, 09/15/18) Uncoded Allergies: ARYTHROMYCIN (Allergy, Unknown, 09/15/18) PCN (Allergy, Unknown, 09/15/18) Home Medications Calcium Carbonate 300 Mg Tab.chew, 600 MG PO Q4H PRN for HEARTBURN, (Reported) Hydrocodone Bit/Acetaminophen 1 Tab Tab, 1-2 TAB PO Q4H PRN for PAIN (6-10) Prescribed by: BLESSING MOORE on 12/31/18 1507 Ibuprofen 200 Mg Capsule, 600 MG PO Q8H PRN for PAIN-MILD, (Reported) Sulfamethoxazole/Trimethoprim 1 Each Tablet, 1 EACH PO BID Prescribed by: BLESSING MOORE on 12/31/18 1042 Patient Home Medication List Home Medication List Reviewed: Yes Review of Systems Review of Systems Constitutional: see HPI, chills EENTM: see HPI Respiratory: no symptoms reported Cardiovascular: no symptoms reported Gastrointestinal: nausea Genitourinary: no symptoms reported Musculoskeletal: no symptoms reported Skin: no symptoms reported Psychiatric/Neurological: No Symptoms Reported Endocrine: No Symptoms Reported Past Wuexhqb-Vivdbd-Nveasl Hx Patient Social History Alcohol Use: Denies Use Number of Drinks Today: AA Alcohol Beverage of Choice: Beer Recreational Drug Use: No Smoking Status: Current Everyday Smoker Type Used: Cigarettes 2nd Hand Smoke Exposure: Yes Recent Foreign Travel: No Contact w/Someone Who Travel: No Recent Infectious Disease Expo: No Recent Hopitalizations: No Immunizations Up To Date Tetanus Booster (TDap): Less than 5yrs Seasonal Allergies Seasonal Allergies: No Past Medical History Surgeries: Yes (shoulder) Orthopedic Respiratory: No Currently Using CPAP: No Currently Using BIPAP: No Cardiac: No Neurological: No Genitourinary: No Gastrointestinal: No Musculoskeletal: No Endocrine: No HEENT: No Cancer: No Psychosocial: No Integumentary: Yes (see hpi) Blood Disorders: No Adverse Reaction/Blood Tranf: No Family Medical History Diabetes, Other Conditions/Hx Physical Exam Vital Signs Vital Signs - First Documented 04/30/19 21:07 Temp 36.7 Pulse 95 Resp 14 B/P (MAP) 74/ Pulse Ox 100 O2 Delivery Room Air Capillary Refill : Less Than 3 Seconds General Appearance: WD/WN (40), no apparent distress Respiratory: no respiratory distress, no accessory muscle use Neurologic/Psychiatric: alert, normal mood/affect, oriented x 3 Skin: normal color, warm/dry Skin Problem Location: upper extremities Skin Problem Character: abscess, other (there is an abscess and erythema as well as swelling to the dorsal aspect proximal phalanx middle finger left hand. The pad of the proximal phalanx left hand is minimally swollen and not erythematous. There is some fluctuance to the radial side of the proximal phalanx dorsally as well as a pustule. The erythema extends proximally up to the wrist, the swelling terminates at the MCP joint. Sensation of the fingertip is a bit reduced, capillary refill is brisk.) Procedures/Interventions I&D : Blade Size: 11 Progress Digital block done using 3 mL of 2% lidocaine without epinephrine, incision made over the most fluctuant area or so aspect proximal phalanx, small amount of purulent material expressed. Culture collected and sent to lab. Progress/Results/Core Measures Results/Orders Lab Results Laboratory Tests Test 04/30/19 21:30 Range/Units White Blood Count 7.9 4.3-11.0 10^3/uL Red Blood Count 4.49 4.35-5.85 10^6/uL Hemoglobin 13.2 L 13.3-17.7 G/DL Hematocrit 40 40-54 % Mean Corpuscular Volume 88 80-99 FL Mean Corpuscular Hemoglobin 29 25-34 PG Mean Corpuscular Hemoglobin Concent 33 32-36 G/DL Red Cell Distribution Width 13.4 10.0-14.5 % Platelet Count 262 130-400 10^3/uL Mean Platelet Volume 10.3 7.4-10.4 FL Neutrophils (%) (Auto) 57 42-75 % Lymphocytes (%) (Auto) 27 12-44 % Monocytes (%) (Auto) 13 H 0-12 % Eosinophils (%) (Auto) 3 0-10 % Basophils (%) (Auto) 1 0-10 % Neutrophils # (Auto) 4.5 1.8-7.8 X 10^3 Lymphocytes # (Auto) 2.1 1.0-4.0 X 10^3 Monocytes # (Auto) 1.0 0.0-1.0 X 10^3 Eosinophils # (Auto) 0.2 0.0-0.3 10^3/uL Basophils # (Auto) 0.1 0.0-0.1 10^3/uL My Orders Orders - LASHONDA AMARAL APRN Ed Iv/Invasive Line Start (04/30/19 21:34) Fentanyl Injection (Sublimaze Injection (04/30/19 21:45) Clindamycin 900 Mg/50 Ml Ivpb (Cleocin P (04/30/19 21:45) Doxycycline Injection (Vibramycin Inject (04/30/19 21:45) Rx-Hydrocodone/Apap 5-325 Mg (Rx-Vicodin (04/30/19 21:45) Cbc With Automated Diff (04/30/19 21:34) Wound Culture (04/30/19 21:34) Lidocaine 1% Inj 20 Ml (Xylocaine 1% Inj (04/30/19 21:45) Ondansetron Injection (Zofran Injectio (04/30/19 21:37) Ondansetron Injection (Zofran Injectio (04/30/19 22:00) Medications Given in ED Current Medications Medications Dose Ordered Sig/Mary Route Start Time Stop Time Status Last Admin Dose Admin Acetaminophen/ Hydrocodone Bitart 1 ea Q4H PRN PO 04/30/19 21:45 04/30/19 21:55 1 EA Clindamycin Phosphate/Dextrose 50 ml @ 100 mls/hr ONCE ONCE IV 04/30/19 21:45 04/30/19 22:14 04/30/19 21:48 100 MLS/HR Fentanyl Citrate 50 mcg ONCE ONCE IVP 04/30/19 21:45 04/30/19 21:46 DC 04/30/19 21:43 50 MCG Lidocaine HCl 20 ml ONCE ONCE INJ 04/30/19 21:45 04/30/19 21:46 DC 04/30/19 21:54 20 ML Ondansetron HCl 4 mg STK-MED ONCE .ROUTE 04/30/19 21:37 04/30/19 21:42 DC 04/30/19 21:54 4 MG Vital Signs/I&O 04/30/19 21:07 Temp 36.7 Pulse 95 Resp 14 B/P (MAP) 74/ Pulse Ox 100 O2 Delivery Room Air Departure Communication (Admissions) Ill have him return to Er tomorrow for recheck. If no improvement, will need admit for IV antibiotics and ortho/surgery consult for surgical debridement Impression Primary Impression: Abscess of left forearm Disposition: HOME, SELF-CARE Condition: Stable Departure-Patient Inst. Decision time for Depature: 22:14 Referrals: NO,LOCAL PHYSICIAN (PCP/Family) Primary Care Physician Patient Instructions: Abscess Incision and Drainage (DC) Add. Discharge Instructions: Change the dressing as needed. Return to the ER tomorrow sometime after 8 PM for recheck. Between 8 and 10 PM for recheck. Antibiotics have been sent to [facility], get these filled first thing in the morning and started. She I think the real chicken All discharge instructions reviewed with patient and/or family. Voiced understanding. Scripts Hydrocodone/Acetaminophen (Raymond 5-325 Tablet) 1 Each Tablet 1 TAB PO Q4-6HR for Pain MDD 10 TABS for 7 Days, #10 TAB Do not fill unless doxycycline is also filled. Prov: LASHONDA AMARAL APRN 04/30/19 Doxycycline Hyclate (Doxycycline Hyclate) 100 Mg Tablet 100 MG PO BID, #20 TAB Prov: LASHONDA AMARAL APRN 04/30/19 Work/School Note: Work Release Form Date Seen in the Emergency Department: Apr 30, 2019 Return to Work: May 02, 2019 LASHONDA AMARAL APRN Apr 30, 2019 22:17
[2019-04-30] MEDS ORDERED: HYDR-4226 PO (22:18)
[2019-04-30] MEDS ORDERED: DOXY100T2 PO (22:18)
[2019-04-30 22:46] VITALS: BP 109/62
== END 2019-04-30 23:23 | disposition home or self-care (01) ==
LOC: EDUNIT# 20:47 → ER 20:49
DX: L02.414 Cutaneous abscess of left upper limb (principal); F17.210 Nicotine dependence, cigarettes, uncomplicated; Z88.1 Allergy status to other antibiotic agents; Z88.0 Allergy status to penicillin
CPT/HCPCS: 36415; 85025; 87070; 87077; 87205

== ENCOUNTER 2019-07-04 14:55 | Emergency (ER) | payer SELFPAY ==
[~2019-07-04] VITALS: Ht 182 cm; Wt 72.7 kg
[~2019-07-04 14:55] MED LIST changes: +DOXY100T2 PO; +HYDR-4226 PO
[2019-07-04] MEDS ORDERED: fentaNYL INJECTION 100 MCG/2 ML AMP ONE (14:56)
--- OUTSIDE RECORDS SUMMARY | 2019-07-04 15:06 | XMS REPORT | Continuity of Care Document ---
Author Organization Unknown Address Unknown Phone Unavailable Allergies Active Description Code Type Severity Reaction Onset Reported/Identified Relationship to Patient Clinical Status Yes amoxicillin [id number] Drug Aller gy Unknown N/A 09/15/2018 Yes ARYTHROMYCIN ARYTHROMYCIN Unknown N/A 09/15/2018 Yes clavulanic acid [id number] D rug Allergy Unknown N/A 09/15/2018 Yes PCN PCN Unknown N/A 09/15/2018 Medications There is no data. Problems Date Dx Coded Attending Type Code Diagnosis Diagnosed By 09/15/2018 KELSEY CARVAJAL Ot F17.210 NICOTINE DEPENDENCE, CIGARETTES, UNCOMPL 09/15/2018 KELSEY CARVAJAL Ot L03.116 CELLULITIS OF LEFT LOWER LIMB 09/15/2018 KELSEY CARVAJAL Ot M79.89 OTHER SPECIFIED SOFT TISSUE DISORDERS 09/15/2018 KELSEY CARVAJAL Ot Z88.0 ALLERGY STATUS TO PENICILLIN 09/15/2018 KELSEY CARVAJAL Ot Z88.1 ALLERGY STATUS TO OTHER ANTIBIOTIC AGENT 09/21/2018 KELSEY CARVAJAL Ot F17.210 NICOTINE DEPENDENCE, CIGARETTES, UNCOMPL 09/21/2018 KELSEY CARVAJAL Ot L03.116 CELLULITIS OF LEFT LOWER LIMB 09/21/2018 KELSEY CARVAJAL Ot M79.89 OTHER SPECIFIED SOFT TISSUE DISORDERS 09/21/2018 KELSEY CARVAJAL Ot Z88.0 ALLERGY STATUS TO PENICILLIN 09/21/2018 KELSEY CARVAJAL Ot Z88.1 ALLERGY STATUS TO OTHER ANTIBIOTIC AGENT 09/21/2018 KELSEY CARVAJAL Ot F17.210 NICOTINE DEPENDENCE, CIGARETTES, UNCOMPL 09/21/2018 KELSEY CARVAJAL Ot L03.116 CELLULITIS OF LEFT LOWER LIMB 09/21/2018 KELSEY CARVAJAL Ot M79.89 OTHER SPECIFIED SOFT TISSUE DISORDERS 09/21/2018 KELSEY CARVAJAL Ot Z88.0 ALLERGY STATUS TO PENICILLIN 09/21/2018 KELSEY CARVAJAL Ot Z88.1 ALLERGY STATUS TO OTHER ANTIBIOTIC AGENT 12/26/2018 CHRISTELLE FERREIRA, CLAU Bond Ot F17.210 NICOTINE DEPENDENCE, CIGARETTES, UNCOMPL 12/26/2018 CLAU BOURGEOIS MD Ot L02.414 CUTANEOUS ABSCESS OF LEFT UPPER LIMB 12/26/2018 CLAU BOURGEOIS MD Ot L03.114 CELLULITIS OF LEFT UPPER LIMB 12/26/2018 CLAU BOURGEOIS MD Ot M79.602 PAIN IN LEFT ARM 12/26/2018 CLAU BOURGEOIS MD Ot Z88.0 ALLERGY STATUS TO PENICILLIN 12/26/2018 CLAU BOURGEOIS MD Ot Z88.1 ALLERGY STATUS TO OTHER ANTIBIOTIC AGENT 12/28/2018 BLESSING MOORE MD, Ot 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 0 ALLERGY STATUS TO PENICILLIN 12/28/2018 BLESSING MOORE MD Ot Z88. 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 0 ALLERGY STATUS TO PENICILLIN 12/31/2018 BLESSING MOORE MD Ot Z88. 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 0 ALLERGY STATUS TO PENICILLIN 01/08/2019 BLESSING MOORE MD, Ot Z88. 1 ALLERGY STATUS TO OTHER ANTIBIOTIC AGENT 05/02/2019 LASHONDA AMARAL APRN Ot F17.210 NICOTINE DEPENDENCE, CIGARETTES, UNCOMPL 05/02/2019 LASHONDA AMARAL APRN Ot L02.414 CUTANEOUS ABSCESS OF LEFT UPPER LIMB 05/02/2019 LASHONDA AMARAL APRN Ot M79.89 OTHER SPECIFIED SOFT TISSUE DISORDERS 05/02/2019 LASHONDA AMARAL APRN Ot Z88 .0 ALLERGY STATUS TO PENICILLIN 05/02/2019 LASHONDA AMARAL APRN Ot Z88 .1 ALLERGY STATUS TO OTHER ANTIBIOTIC AGENT Procedures Code Description Performed By Per edison On [id number] EX CISION OF L LOW ARM WRIST MUSCLE, OP 12/29/2018 Results Test Result Range Complete blood count (CBC) with automate d white blood cell (WBC) differential - 09/15/18 21:10 Blood leukocytes automated count (number/volume) 9.1 10*3/uL 4.3-11.0 Blood erythrocytes automated count (number/volume) 4.51 10*6/uL 4.35-5.85 Venous blood hemoglobin measurement (mass/volume) 13.1 g/dL 13.3-17.7 Blood hematocrit (volume fraction) 40 % 40-54 Automated erythrocyte mean corpuscular volume 89 [ foz_us] 80-99 Automated erythrocyte mean corpuscular h emoglobin (mass per erythrocyte) 29 pg 25-34 Automated erythrocyte mean corpuscular h emoglobin concentration measurement (mass/volume) 33 g/dL 32-36 Automated erythrocyte distribution width ratio 13. 5 % 10.0- 14.5 Automated blood platelet count (count/volume) 337 10*3/uL 130-400 Automated blood platelet mean volume measurement 10.3 [foz_us] 7.4-10.4 Automated blood neutrophils/100 leukocytes 66 % 42-75 Automated blood lymphocytes/100 leukocytes 22 % 12-44 Blood monocytes/100 leukocytes 10 % 0-12 Automated blood eosinophils/100 leukocytes 2 % 0-10 Automated blood basophils/100 leukocytes 1 % 0-10 Blood neutrophils automated count (number/volume) 6.0 10*3 1.8-7.8 Blood lymphocytes automated count (number/volume) 2.0 10*3 1.0-4.0 Blood monocytes automated count (number/volume) 0. 9 10*3 0.0-1.0 Automated eosinophil count 0.2 10*3/uL 0 .0-0.3 Automated blood basophil count (count/volume) 0.1 10*3/uL 0.0-0.1 Comprehensive metabolic panel - 09/15/18 21:10 Serum or plasma sodium measurement (moles/volume) 137 mmol/L 135-145 Serum or plasma potassium measurement (moles/volume) 3.8 mmol/L 3.6-5.0 Serum or plasma chloride measurement (moles/volume) 101 mmol/L 98-107 Carbon dioxide 26 mmol/L 21-32 Serum or plasma anion gap determination (moles/volume) 10 mmol/L 5-14 Serum or plasma urea nitrogen measurement (mass/volume ) 19 mg/dL 7-18 Serum or plasma creatinine measurement (mass/volume) 1.26 mg/dL 0.60-1.30 Serum or plasma urea nitrogen/creatinine mass ratio 15 NRG Serum or plasma creatinine measurement w ith calculation of estimated glomerular filtration rate > NRG Serum or plasma glucose measurement (mass/volume) 102 mg/dL 70-105 Serum or plasma calcium measurement (mass/volume) 9.6 mg/dL 8.5-10.1 Serum or plasma total bilirubin measurement (mass/volu me) 0.5 mg/dL 0.1-1.0 Serum or plasma alkaline phosphatase yazmin surement (enzymatic activity/volume) 77 U/L 40-136 Serum or plasma aspartate aminotransfera se measurement (enzymatic activity/volume) 19 U/L 5-34 Serum or plasma alanine aminotransferase measurement (enzymatic activity/volume) 14 U/L 0-55 Serum or plasma protein measurement (mass/volume) 7.3 g/dL 6.4-8.2 Serum or plasma albumin measurement (mass/volume) 4.1 g/dL 3.2-4.5 CALCIUM CORRECTED 9.5 mg/dL 8.5-10.1 Serum or plasma C reactive protein measu rement (mass/volume) - 09/15/18 21:10 Serum or plasma C reactive protein measurement (mass/v olume) 2.00 mg/dL 0.00-0.50 Gram stain microscopy - 12/26/18 15:06 Gram stain microscopy NO BACTERIA SEEN NRG Bacteria identification in wound by cult ure - 12/26/18 15:06 Bacteria identification in wound by culture [id number] NRG FREE TEXT EXTERNAL SUSCEPTIBILITY REPORTED 9, 1323 NRG QUANTITY OF GROWTH Many NRG MRSA AGAR CLINDAMYCIN RESISTANT WITHOUT INDUCTION NRG FREE TEXT ENTRY 2 RESISTANT ORGANISM/CONTACT PRECA UTIONS NRG CALL POSITIVES (F1 HELP) SENT TO ED/NS PRINT ER 10-, 1210/KD NRG PBP2 MRSA/METHICILLIN RESISTANT STAPH AUREUS NRG Dirithromycin susceptibility test by dis k diffusion - 12/26/18 15:06 Oxacillin susceptibility test by minimum inhibitory co ncentration > NRG Clindamycin susceptibility test by minimum inhibitory concentration > NRG Erythromycin susceptibility test by minimum inhibitory concentration > NRG Trimethoprim/sulfamethoxazole susceptibi lity test by minimum inhibitoryconcentration <= NRG Vancomycin susceptibility test by minimum inhibitory c oncentration 1 NRG Levofloxacin susceptibility test by minimum inhibitory concentration 4 NRG Rifampin susceptibility test by minimum inhibitory con centration <= NRG Cefazolin susceptibility test by minimum inhibitory co ncentration > NRG Linezolid susceptibility test by minimum inhibitory co ncentration <= NRG Penicillin G susceptibility test by minimum inhibitory concentration > NRG Moxifloxacin susceptibility test by minimum inhibitory concentration [address] [facility] ANNIE <= NRG Complete blood count (CBC) with automate d white blood cell (WBC) differential - 12/27/18 23:30 Blood leukocytes automated count (number/volume) 11.8 10*3/uL 4.3-11.0 Blood erythrocytes automated count (number/volume) 4.32 10*6/uL 4.35-5.85 Venous blood hemoglobin measurement (mass/volume) 12.6 g/dL 13.3-17.7 Blood hematocrit (volume fraction) 38 % 40-54 Automated erythrocyte mean corpuscular volume 89 [ foz_us] 80-99 Automated erythrocyte mean corpuscular h emoglobin (mass per erythrocyte) 29 pg 25-34 Automated erythrocyte mean corpuscular h emoglobin concentration measurement (mass/volume) 33 g/dL 32-36 Automated erythrocyte distribution width ratio 13. 5 % 10.0- 14.5 Automated blood platelet count (count/volume) 276 10*3/uL 130-400 Automated blood platelet mean volume measurement 10.4 [foz_us] 7.4-10.4 Automated blood neutrophils/100 leukocytes 67 % 42-75 Automated blood lymphocytes/100 leukocytes 18 % 12-44 Blood monocytes/100 leukocytes 14 % 0-12 Automated blood eosinophils/100 leukocytes 2 % 0-10 Automated blood basophils/100 leukocytes 1 % 0-10 Blood neutrophils automated count (number/volume) 7.9 10*3 1.8-7.8 Blood lymphocytes automated count (number/volume) 2.1 10*3 1.0-4.0 Blood monocytes automated count (number/volume) 1. 6 10*3 0.0-1.0 Automated eosinophil count 0.2 10*3/uL 0 .0-0.3 Automated blood basophil count (count/volume) 0.1 10*3/uL 0.0-0.1 Comprehensive metabolic panel - 12/27/18 23:30 Serum or plasma sodium measurement (moles/volume) 135 mmol/L 135-145 Serum or plasma potassium measurement (moles/volume) 3.6 mmol/L 3.6-5.0 Serum or plasma chloride measurement (moles/volume) 100 mmol/L 98-107 Carbon dioxide 24 mmol/L 21-32 Serum or plasma anion gap determination (moles/volume) 11 mmol/L 5-14 Serum or plasma urea nitrogen measurement (mass/volume ) 16 mg/dL 7-18 Serum or plasma creatinine measurement (mass/volume) 1.06 mg/dL 0.60-1.30 Serum or plasma urea nitrogen/creatinine mass ratio 15 NRG Serum or plasma creatinine measurement w ith calculation of estimated glomerular filtration rate > NRG Serum or plasma glucose measurement (mass/volume) 83 mg/dL 70-105 Serum or plasma calcium measurement (mass/volume) 9.3 mg/dL 8.5-10.1 Serum or plasma total bilirubin measurement (mass/volu me) 0.6 mg/dL 0.1-1.0 Serum or plasma alkaline phosphatase yazmin surement (enzymatic activity/volume) 83 U/L 40-136 Serum or plasma aspartate aminotransfera se measurement (enzymatic activity/volume) 32 U/L 5-34 Serum or plasma alanine aminotransferase measurement (enzymatic activity/volume) 19 U/L 0-55 Serum or plasma protein measurement (mass/volume) 7.3 g/dL 6.4-8.2 Serum or plasma albumin measurement (mass/volume) 4.1 g/dL 3.2-4.5 CALCIUM CORRECTED 9.2 mg/dL 8.5-10.1 Serum or plasma C reactive protein measu rement (mass/volume) - 12/27/18 23:30 Serum or plasma C reactive protein measurement (mass/v olume) 12.92 mg/dL 0.00-0.50 Complete blood count (CBC) with automate d white blood cell (WBC) differential - 12/28/18 05:13 Blood leukocytes automated count (number/volume) 9.4 10*3/uL 4.3-11.0 Blood erythrocytes automated count (number/volume) 4.00 10*6/uL 4.35-5.85 Venous blood hemoglobin measurement (mass/volume) 11.7 g/dL 13.3-17.7 Blood hematocrit (volume fraction) 36 % 40-54 Automated erythrocyte mean corpuscular volume 90 [ foz_us] 80-99 Automated erythrocyte mean corpuscular h emoglobin (mass per erythrocyte) 29 pg 25-34 Automated erythrocyte mean corpuscular h emoglobin concentration measurement (mass/volume) 33 g/dL 32-36 Automated erythrocyte distribution width ratio 13. 5 % 10.0- 14.5 Automated blood platelet count (count/volume) 230 10*3/uL 130-400 Automated blood platelet mean volume measurement 10.7 [foz_us] 7.4-10.4 Automated blood neutrophils/100 leukocytes 64 % 42-75 Automated blood lymphocytes/100 leukocytes 21 % 12-44 Blood monocytes/100 leukocytes 13 % 0-12 Automated blood eosinophils/100 leukocytes 2 % 0-10 Automated blood basophils/100 leukocytes 0 % 0-10 Blood neutrophils automated count (number/volume) 6.0 10*3 1.8-7.8 Blood lymphocytes automated count (number/volume) 2.0 10*3 1.0-4.0 Blood monocytes automated count (number/volume) 1. 2 10*3 0.0-1.0 Automated eosinophil count 0.2 10*3/uL 0 .0-0.3 Automated blood basophil count (count/volume) 0.0 10*3/uL 0.0-0.1 Comprehensive metabolic panel - 12/28/18 05:13 Serum or plasma sodium measurement (moles/volume) 137 mmol/L 135-145 Serum or plasma potassium measurement (moles/volume) 4.3 mmol/L 3.6-5.0 Serum or plasma chloride measurement (moles/volume) 106 mmol/L 98-107 Carbon dioxide 24 mmol/L 21-32 Serum or plasma anion gap determination (moles/volume) 7 mmol/L 5-14 Serum or plasma urea nitrogen measurement (mass/volume ) 13 mg/dL 7-18 Serum or plasma creatinine measurement (mass/volume) 0.90 mg/dL 0.60-1.30 Serum or plasma urea nitrogen/creatinine mass ratio 14 NRG Serum or plasma creatinine measurement w ith calculation of estimated glomerular filtration rate > NRG Serum or plasma glucose measurement (mass/volume) 86 mg/dL 70-105 Serum or plasma calcium measurement (mass/volume) 8.6 mg/dL 8.5-10.1 Serum or plasma total bilirubin measurement (mass/volu me) 0.5 mg/dL 0.1-1.0 Serum or plasma alkaline phosphatase yazmin surement (enzymatic activity/volume) 65 U/L 40-136 Serum or plasma aspartate aminotransfera se measurement (enzymatic activity/volume) 27 U/L 5-34 Serum or plasma alanine aminotransferase measurement (enzymatic activity/volume) 17 U/L 0-55 Serum or plasma protein measurement (mass/volume) 6.1 g/dL 6.4-8.2 Serum or plasma albumin measurement (mass/volume) 3.5 g/dL 3.2-4.5 CALCIUM CORRECTED 9.0 mg/dL 8.5-10.1 Serum or plasma C reactive protein measu rement (mass/volume) - 12/28/18 05:13 Serum or plasma C reactive protein measurement (mass/v olume) 11.45 mg/dL 0.00-0.50 Methicillin resistant Staphylococcus aur eus (MRSA) screening culture - 12/29/18 12:04 MRSA SCREEN RESULT MRSA ISOLATED NRG Bacteria identification in isolate by an aerobe culture - 12/29/18 13:19 Bacteria identification in isolate by anaerobe culture NOANA NRG Gram stain microscopy - 12/29/18 13:19 Gram stain microscopy Moderate Gram positive cocci in clusters NRG Bacteria identification in wound by cult ure - 12/29/18 13:19 Bacteria identification in wound by culture [id number] NRG FREE TEXT EXTERNAL REFER TO CULTURE COLLECT IN ED NRG QUANTITY OF GROWTH Many NRG MRSA AGAR MRSA/METHICILLIN RESISTANT STAPH AUREUS NRG CALL POSITIVES (F1 HELP) CALLED TO HERNESTO/SADAF RSE 12-30-18 AT 1455/KD NRG PBP2 FROM THE SAME SOURCE. SEE COMMENT NRG Vancomycin trough - 12/30/18 01:52 Vancomycin trough 9.0 ug/mL 10.0-20.0 Vancomycin trough - 12/31/18 10:40 Vancomycin trough 15.5 ug/mL 10.0-20.0 Complete blood count (CBC) with automate d white blood cell (WBC) differential - 04/30/19 21:30 Blood leukocytes automated count (number/volume) 7.9 10*3/uL 4.3-11.0 Blood erythrocytes automated count (number/volume) 4.49 10*6/uL 4.35-5.85 Venous blood hemoglobin measurement (mass/volume) 13.2 g/dL 13.3-17.7 Blood hematocrit (volume fraction) 40 % 40-54 Automated erythrocyte mean corpuscular volume 88 [ foz_us] 80-99 Automated erythrocyte mean corpuscular h emoglobin (mass per erythrocyte) 29 pg 25-34 Automated erythrocyte mean corpuscular h emoglobin concentration measurement (mass/volume) 33 g/dL 32-36 Automated erythrocyte distribution width ratio 13. 4 % 10.0- 14.5 Automated blood platelet count (count/volume) 262 10*3/uL 130-400 Automated blood platelet mean volume measurement 10.3 [foz_us] 7.4-10.4 Automated blood neutrophils/100 leukocytes 57 % 42-75 Automated blood lymphocytes/100 leukocytes 27 % 12-44 Blood monocytes/100 leukocytes 13 % 0-12 Automated blood eosinophils/100 leukocytes 3 % 0-10 Automated blood basophils/100 leukocytes 1 % 0-10 Blood neutrophils automated count (number/volume) 4.5 10*3 1.8-7.8 Blood lymphocytes automated count (number/volume) 2.1 10*3 1.0-4.0 Blood monocytes automated count (number/volume) 1. 0 10*3 0.0-1.0 Automated eosinophil count 0.2 10*3/uL 0 .0-0.3 Automated blood basophil count (count/volume) 0.1 10*3/uL 0.0-0.1 Gram stain microscopy - 04/30/19 22:10 Gram stain microscopy Red blood cell debris NRG Bacteria identification in wound by cult ure - 04/30/19 22:10 Bacteria identification in wound by culture [id number] NRG FREE TEXT EXTERNAL SUSCEPTIBILITY REPORTED 05/03 11 :25 NRG QUANTITY OF GROWTH Moderate Growth NRG FREE TEXT ENTRY 2 PRESUMPTIVE MRSA; SCREENING AT V CP NRG FREE TEXT ENTRY 3 05/01/19 14:20 NRG Dirithromycin susceptibility test by dis k diffusion - 04/30/19 22:10 Oxacillin susceptibility test by minimum inhibitory co ncentration > NRG Clindamycin susceptibility test by minimum inhibitory concentration > NRG Erythromycin susceptibility test by minimum inhibitory concentration > NRG Trimethoprim/sulfamethoxazole susceptibi lity test by minimum inhibitoryconcentration <= NRG Vancomycin susceptibility test by minimum inhibitory c oncentration 1 NRG Levofloxacin susceptibility test by minimum inhibitory concentration 4 NRG Rifampin susceptibility test by minimum inhibitory con centration <= NRG Cefazolin susceptibility test by minimum inhibitory co ncentration > NRG Linezolid susceptibility test by minimum inhibitory co ncentration <= NRG Penicillin G susceptibility test by minimum inhibitory concentration > NRG Moxifloxacin susceptibility test by minimum inhibitory concentration 1 NRG Minocycline susc ANNIE <= NRG Encounters ACCT No. Visit Date/Time Discharge Status Pt. Type Provider Facility Loc./Unit Complaint [id number] 09/11/2018 16:40:00 09/11/2018 23:59: 59 CLS Outpatient [facility] [id number] 04/30/2019 20:49:00 23:23:00 DIS Outpatient LASHONDA AMARAL APRN [facility] ER LEFT HAND ABSCESS [id number] 12/30/2018 15:20:00 16:15:00 DIS Inpatient TERESA FERREIRA, BLESSING Patel [facility] 4TH EXTENSIVE CELLULITIS LF T UPPER ARM EXTREMITY; [id number] 12/26/2018 14:32:00 15:31:00 DIS Emergency CHRISTELLE FERREIRA, CLAU Bond [facility] ER L ARM POSS SPID ER BITE [id number] 09/15/2018 21:01:00 23:20:00 DIS Emergency KELSEY CARVAJAL [facility] ER LF ANKLE PAIN
--- NOTE | 2019-07-04 15:14 | ED Upper Extremity ---
General Chief Complaint: Laceration Stated Complaint: R HAND LAC Nursing Triage Note: Pt to ED room 2 via [facility]. Pt was cutting a piece of wood and got R hand cut by table saw. R hand wrapped with gauze and bleeding controlled upon arrival to ED. Nursing Sepsis Screen: No Definite Risk Source: patient Exam Limitations: no limitations History of Present Illness Date Seen by Provider: Jul 04, 2019 Time Seen by Provider: 15:09 Initial Comments To ER for EMS from home with reports of a laceration from table saw to the right hand. He reports tetanus is up-to-date. She's had one the last 5 years. States he was adjusting the blade when his other hand must have accidentally hit the trigger causing it to come on. Onset: just prior to arrival Severity: moderate Pain/Injury Location: right hand, right 2nd finger Modifying Factors: Worse With Movement Allergies and Home Medications Allergies Coded Allergies: amoxicillin (Verified Allergy, Unknown, 09/15/18) clavulanic acid (Verified Allergy, Unknown, 09/15/18) Uncoded Allergies: ARYTHROMYCIN (Allergy, Unknown, 09/15/18) PCN (Allergy, Unknown, 09/15/18) Home Medications Calcium Carbonate 300 Mg Tab.chew, 600 MG PO Q4H PRN for HEARTBURN, (Reported) Doxycycline Hyclate 100 Mg Tablet, 100 MG PO BID Prescribed by: LASHONDA AMARAL on 04/30/192217 Hydrocodone Bit/Acetaminophen 1 Tab Tab, 1-2 TAB PO Q4H PRN for PAIN (6-10) Prescribed by: BLESSING MOORE on 12/31/18 1507 Hydrocodone/Acetaminophen 1 Each Tablet, 1 TAB PO Q4-6HR Do not fill unless doxycycline is also filled. Prescribed by: LASHONDA AMARAL on 04/30/192217 Ibuprofen 200 Mg Capsule, 600 MG PO Q8H PRN for PAIN-MILD, (Reported) Sulfamethoxazole/Trimethoprim 1 Each Tablet, 1 EACH PO BID Prescribed by: BLESSING MOORE on 12/31/18 1042 Patient Home Medication List Home Medication List Reviewed: Yes Review of Systems Constitutional: see HPI EENTM: see HPI Respiratory: no symptoms reported Cardiovascular: no symptoms reported Genitourinary: no symptoms reported Musculoskeletal: no symptoms reported Skin: see HPI Psychiatric/Neurological: No Symptoms Reported Past Oteltam-Vcjtyy-Sjwbfj Hx Patient Social History Alcohol Beverage of Choice: Beer Type Used: Cigarettes 2nd Hand Smoke Exposure: Yes Recent Foreign Travel: No Contact w/Someone Who Travel: No Recent Infectious Disease Expo: No Recent Hopitalizations: No Immunizations Up To Date Tetanus Booster (TDap): Less than 5yrs Seasonal Allergies Seasonal Allergies: No Past Medical History Surgeries: Yes (shoulder) Orthopedic Respiratory: No Currently Using CPAP: No Currently Using BIPAP: No Cardiac: No Neurological: No Genitourinary: No Gastrointestinal: No Musculoskeletal: No Endocrine: No HEENT: No Cancer: No Psychosocial: No Integumentary: Yes (see hpi) Blood Disorders: No Adverse Reaction/Blood Tranf: No Family Medical History Diabetes, Other Conditions/Hx Physical Exam Vital Signs Vital Signs - First Documented 07/04/19 14:57 Pulse 88 Resp 20 B/P (MAP) 120/83 (95) Pulse Ox 98 O2 Delivery Room Air Capillary Refill : Less Than 3 Seconds Height, Weight, BMI Height: 6'0" Weight: 150lbs. oz. 68.526089pm; 21.00 BMI Method:Stated General Appearance: WD/WN, other (very anxious and tremulous appearing.) HEENT: PERRL/EOMI, normal ENT inspection Cardiovascular: no murmur, tachycardia Respiratory: no respiratory distress, no accessory muscle use Elbow/Forearm: normal inspection, non-tender Wrist: Yes normal inspection, Yes non-tender Hand: Right (3 cm laceration to the hypo-thenar eminence right hand depth to the subcutaneous tissues, to send meter laceration to the volar surface pad proximal phalanx pointer finger right hand. Normal sensation distally to all of the fingertips. Unable to flex any of his fingers because of pain he states.) Neurologic/Psychiatric: alert, normal mood/affect, oriented x 3 Skin: normal color, warm/dry Procedures/Interventions Wound Location: Upper Extremities Wound Length (cm): 5 Wound's Depth, Shape: irregular, sub Q Wound Explored: clean Irrigated w/ Saline (ccs): 500 Anesthesia: 1% Lidocaine Volume Anesthetic (ccs): 5 Wound Debrided: moderate Suture: Prolene Suture Size: 4-0 Number of Sutures: 9 Layer Closure?: 1 Number Deep Layer Sutures: 0 Progress The 3 cm laceration to the hypo-thenar eminence of the hand was irrigated with 250 mL of Betadine/saline solution and closed loosely with 5 simple interrupted sutures size 4-0 Prolene. The V-shaped laceration with devitalized flap was loosely sutured into place after local anesthesia. This was also irrigated with 250 mL of Betadine/saline solution, closed with 4 simple interrupted sutures. Will be dressed with Xeroform then a gauze then Covan. Progress/Results/Core Measures Results/Orders My Orders Orders - LASHONDA AMARAL APRN Fentanyl Injection (Sublimaze Injection (07/04/19 15:15) Lidocaine 1% Inj 20 Ml (Xylocaine 1% Inj (07/04/19 15:15) Lorazepam Injection (Ativan Injection) (07/04/19 15:15) Hand, Right, 3 Views (07/04/19 15:09) Medications Given in ED Current Medications Medications Dose Ordered Sig/Mary Route Start Time Stop Time Status Last Admin Dose Admin Fentanyl Citrate 50 mcg ONCE PRN IVP 07/04/19 15:15 07/04/19 15:07 50 MCG Lorazepam 1 mg ONCE ONCE IVP 07/04/19 15:15 07/04/19 15:16 DC 07/04/19 15:11 1 MG Vital Signs/I&O 07/04/19 14:57 Pulse 88 Resp 20 B/P (MAP) 120/83 (95) Pulse Ox 98 O2 Delivery Room Air Blood Pressure Mean: 95 Departure Communication (Admissions) After some Ativan and fentanyl he is able to flex the pointer finger. This tissue flap V-shaped in nature over the palmar surface proximal phalanx pointer finger is pale and devitalized but will be loosely tacked into place while this wound heals via secondary intention. The depth is to the subcutaneous tissue, I am unable to visualize any flexor tendon or flexor tendon injury. He does have very thick callused hands. Distal capillary refill is brisk. Impression Primary Impression: Laceration of right hand Qualified Codes: S61.411A - Laceration without foreign body of right hand, initial encounter Disposition: HOME, SELF-CARE Condition: Stable Departure-Patient Inst. Decision time for Depature: 16:06 Referrals: NO,LOCAL PHYSICIAN (PCP/Family) Primary Care Physician Patient Instructions: Laceration Repair With Stitches (DC), Wound Care Add. Discharge Instructions: 1. Please return to the emergency room on Sunday for a wound check. Take antibiotics as directed. Pain medication as directed. Change the dressing daily, more often if it bleeds through. Otherwise we'll see you back in 12 days 07/18/19. All discharge instructions reviewed with patient and/or family. Voiced understanding. Scripts Cephalexin (Keflex) 500 Mg Capsule 500 MG PO TID, #21 CAP Prov: LASHONDA AMARAL APRN 07/04/19 LASHONDA AMARAL APRN Jul 04, 2019 15:13
[2019-07-04] MEDS ORDERED: LIDOCAINE 1% INJ 20 ML 20 ML VIAL INJ ONE (15:15)
[2019-07-04] MEDS ORDERED: fentaNYL INJECTION 100 MCG/2 ML AMP IVP PRN (15:15)
[2019-07-04] MEDS ORDERED: LORazepam INJ 2 MG/ML (ATIVAN) VIAL IVP ONE (15:15)
--- NOTE | 2019-07-04 15:57 | Diagnostic Imaging Report ---
EXAMINATION: Right hand, 3 views INDICATION: Hand laceration. COMPARISON: None. FINDINGS: No fracture or acute osseous abnormality. Bony alignment is maintained. No prominent arthritic changes noted. Carpal configuration is normal. There is soft tissue defect in the palmar aspect of the second digit adjacent to the proximal phalanx. Soft tissues are otherwise unremarkable. No radiopaque foreign body. IMPRESSION: No acute fracture or dislocation. Soft tissue defect involving the second digit, compatible with patient's reported history of laceration. Dictated by: Dictated on workstation # [id number]
[2019-07-04] MEDS ORDERED: CEPH-507 PO (16:08)
[2019-07-04] MEDS ORDERED: HYDR-3870 PO (16:08)
[2019-07-04 16:32] VITALS: BP 114/77
--- NOTE | 2019-07-04 16:32 | NUR ---
DRESSING BY TECH DRESSING SENT HOME WITH PATIENT.
== END 2019-07-04 16:32 | disposition home or self-care (01) ==
LOC: EDUNIT# 14:55 → ER 14:56
DX: S61.411A Laceration without foreign body of right hand, initial encounter (principal); Z88.0 Allergy status to penicillin; Z88.1 Allergy status to other antibiotic agents; Z77.22 Contact with and (suspected) exposure to environmental tobacco smoke (acute) (chronic); W31.2XXA Contact with powered woodworking and forming machines, initial encounter
CPT/HCPCS: 12002; 73130

== ENCOUNTER 2019-12-05 09:58 | Emergency (ER) | payer SELFPAY ==
[~2019-12-05] VITALS: Ht 182.8 cm; Wt 68.0 kg
[~2019-12-05 09:58] MED LIST changes: +CEPH-507 PO; +HYDR-3870 PO
[2019-12-05 10:05] VITALS: BP 115/70
[2019-12-05] MEDS ORDERED: SULF1TAB35 PO (10:34)
--- NOTE | 2019-12-05 10:38 | ED Integumentary General ---
General Chief Complaint: Skin/Wound Problems Stated Complaint: R ARM WOUND Nursing Triage Note: PT AMB TO RM 6 WITH COMPLAINT OF BITE TO LEFT ARM. Source: patient Exam Limitations: no limitations History of Present Illness Date Seen by Provider: Dec 05, 2019 Time Seen by Provider: 10:15 Initial Comments This 34-year-old man presents to the emergency room with complaints of pain, erythema, and swelling around a lesion on his right forearm. He was reaching into the bed of his pickup truck to clean it out about 3 days ago when he felt something like a bite on his arm. The area became progressively painful. Yesterday his seem to burst or rupture in the shower and some purulent drainage came out. He now hasn't eschared center to the lesion. He denies fever. He denies any injectable drug use. Allergies and Home Medications Allergies Coded Allergies: amoxicillin (Verified Allergy, Unknown, 09/15/18) clavulanic acid (Verified Allergy, Unknown, 09/15/18) Uncoded Allergies: ARYTHROMYCIN (Allergy, Unknown, 09/15/18) PCN (Allergy, Unknown, 09/15/18) Home Medications Calcium Carbonate 300 Mg Tab.chew, 600 MG PO Q4H PRN for HEARTBURN, (Reported) Cephalexin 500 Mg Capsule, 500 MG PO TID Prescribed by: LASHONDA AMARAL on 07/04/19 160 Doxycycline Hyclate 100 Mg Tablet, 100 MG PO BID Prescribed by: LASHONDA AMARAL on 04/30/198 Hydrocodone Bit/Acetaminophen 1 Tab Tab, 1-2 TAB PO Q4H PRN for PAIN (6-10) Prescribed by: BLESSING MOORE on 12/31/18 1507 Hydrocodone/Acetaminophen 1 Each Tablet, 1 TAB PO Q4-6HR Do not fill unless doxycycline is also filled. Prescribed by: LASHONDA AMARAL on 04/30/19 2218 Hydrocodone/Acetaminophen 1 Each Tablet, 1 EACH PO Q4-6HR PRN for PAIN-MODERATE Prescribed by: LASHONDA AMARAL on 07/04/19 1609 Ibuprofen 200 Mg Capsule, 600 MG PO Q8H PRN for PAIN-MILD, (Reported) Sulfamethoxazole/Trimethoprim 1 Each Tablet, 1 EACH PO BID Prescribed by: BLESSING MOORE on 12/31/18 1042 Sulfamethoxazole/Trimethoprim 1 Each Tablet, 1 EACH PO BID Prescribed by: CLAU STANTON on 12/05/19 1034 Patient Home Medication List Home Medication List Reviewed: Yes Review of Systems Review of Systems Constitutional: no symptoms reported EENTM: no symptoms reported Respiratory: no symptoms reported Cardiovascular: no symptoms reported Gastrointestinal: no symptoms reported Genitourinary: no symptoms reported Musculoskeletal: see HPI Skin: see HPI Psychiatric/Neurological: No Symptoms Reported Endocrine: No Symptoms Reported Hematologic/Lymphatic: No Symptoms Reported Past Tepjphh-Pxbcxr-Ndyuil Hx Patient Social History Alcohol Use: Denies Use Alcohol Beverage of Choice: Beer Recreational Drug Use: Yes Drug of Choice: MARIJUANA Smoking Status: Current Everyday Smoker Type Used: Cigarettes 2nd Hand Smoke Exposure: Yes Recent Foreign Travel: No Contact w/Someone Who Travel: No Recent Infectious Disease Expo: No Recent Hopitalizations: No Immunizations Up To Date Tetanus Booster (TDap): Less than 5yrs Seasonal Allergies Seasonal Allergies: No Past Medical History Surgeries: Yes (shoulder) Orthopedic Respiratory: No Currently Using CPAP: No Currently Using BIPAP: No Cardiac: No Neurological: No Genitourinary: No Gastrointestinal: Yes Gastroesophageal Reflux Musculoskeletal: No Endocrine: No HEENT: No Cancer: No Psychosocial: No Integumentary: No Blood Disorders: No Adverse Reaction/Blood Tranf: No Family Medical History Diabetes, Other Conditions/Hx Physical Exam Vital Signs Vital Signs - First Documented 12/05/19 10:05 Temp 36.4 Pulse 70 Resp 20 B/P (MAP) 115/70 (85) Pulse Ox 99 O2 Delivery Room Air Capillary Refill : Less Than 3 Seconds General Appearance: WD/WN, no apparent distress HEENT: normal ENT inspection Neck: normal inspection Cardiovascular: no edema, no murmur, tachycardia (mild) Respiratory: lungs clear, normal breath sounds, no respiratory distress Extremities: other (there is a lesion on the ulnar aspect of the right forearm about 4 cm in diameter with induration, erythema, warmth, and tenderness. There is a small eschar in the center of this area.) Neurologic/Psychiatric: forming acid dumper II-XII nml as tested, no motor/sensory deficits, alert, normal mood/affect, oriented x 3 Skin: normal color, warm/dry, other (see above) Procedures/Interventions Suture Size: 4-0 Progress/Results/Core Measures Results/Orders Vital Signs/I&O 12/05/19 10:05 Temp 36.4 Pulse 70 Resp 20 B/P (MAP) 115/70 (85) Pulse Ox 99 O2 Delivery Room Air Blood Pressure Mean: 85 Progress Progress Note : Progress Note bedside ultrasound revealed no drainable fluid collection. Patient was started on Bactrim. He reports tetanus immunization about a year ago. Departure Impression Primary Impression: Right forearm cellulitis Disposition: HOME, SELF-CARE Condition: Stable Departure-Patient Inst. Decision time for Depature: 10:31 Referrals: NO,LOCAL PHYSICIAN (PCP/Family) Primary Care Physician Patient Instructions: Cellulitis (Skin Infection), Adult (DC) Add. Discharge Instructions: Start your antibiotics immediately. Get two doses of the antibiotic in today. Use warm compresses or soak in a warm soapy tub for 20 minutes 3 or 4 times a day for the next couple days to encourage drainage. If you develop fever or other worsening symptoms please return to the emergency room. Tylenol and/or ibuprofen may be used for pain. All discharge instructions reviewed with patient and/or family. Voiced understanding. Scripts Sulfamethoxazole/Trimethoprim (Bactrim Ds Tablet) 1 Each Tablet 1 EACH PO BID, #20 TAB Prov: CLAU BOURGEOIS MD 12/05/19 CLAU BOURGEOIS MD Dec 05, 2019 10:38
== END 2019-12-05 10:48 | disposition home or self-care (01) ==
LOC: EDUNIT# 09:58 → ER 09:58
DX: L03.113 Cellulitis of right upper limb (principal); F17.210 Nicotine dependence, cigarettes, uncomplicated; Z88.0 Allergy status to penicillin; Z88.1 Allergy status to other antibiotic agents
CPT/HCPCS: 99282

== ENCOUNTER 2020-04-09 21:06 | Emergency (ER) | payer SELFPAY ==
[~2020-04-09] VITALS: Ht 182 cm; Wt 81.0 kg
--- NOTE | 2020-04-09 21:15 | ED Upper Extremity ---
General Chief Complaint: Upper Extremity Stated Complaint: R HAND THUMB INJ Source: patient Exam Limitations: no limitations History of Present Illness Date Seen by Provider: Apr 09, 2020 Time Seen by Provider: 21:13 Initial Comments To ER by private vehicle with reports of right thumb pain. 2 to 3 days ago he was working on a vehicle with a pair of vice tube puller when the spring sprung causing some part of the vice tube puller to contact the tip of his thumb jamming his finger. Tonight the pain seems to be much worse. Onset: other Severity: moderate Pain/Injury Location: right thumb Method of Injury: direct blow Modifying Factors: Worse With Movement Allergies and Home Medications Allergies Coded Allergies: amoxicillin (Verified Allergy, Unknown, 09/15/18) clavulanic acid (Verified Allergy, Unknown, 09/15/18) Uncoded Allergies: ARYTHROMYCIN (Allergy, Unknown, 09/15/18) PCN (Allergy, Unknown, 09/15/18) Home Medications Calcium Carbonate 300 Mg Tab.chew, 600 MG PO Q4H PRN for HEARTBURN, (Reported) Cephalexin 500 Mg Capsule, 500 MG PO TID Prescribed by: LASHONDA AMARAL on 07/04/19 1608 Doxycycline Hyclate 100 Mg Tablet, 100 MG PO BID Prescribed by: LASHONDA AMARAL on 04/30/19 2218 Hydrocodone Bit/Acetaminophen 1 Tab Tab, 1-2 TAB PO Q4H PRN for PAIN (6-10) Prescribed by: BLESSING MOORE on 12/31/18 1507 Hydrocodone/Acetaminophen 1 Each Tablet, 1 TAB PO Q4-6HR Do not fill unless doxycycline is also filled. Prescribed by: LASHONDA AMARAL on 04/30/19 2218 Hydrocodone/Acetaminophen 1 Each Tablet, 1 EACH PO Q4-6HR PRN for PAIN-MODERATE Prescribed by: LASHONDA AMARAL on 07/04/19 1609 Ibuprofen 200 Mg Capsule, 600 MG PO Q8H PRN for PAIN-MILD, (Reported) Sulfamethoxazole/Trimethoprim 1 Each Tablet, 1 EACH PO BID Prescribed by: BLESSING MOORE on 12/31/18 1042 Sulfamethoxazole/Trimethoprim 1 Each Tablet, 1 EACH PO BID Prescribed by: CLAU STANTON on 12/05/19 1034 Patient Home Medication List Home Medication List Reviewed: Yes Review of Systems Constitutional: see HPI EENTM: see HPI Respiratory: no symptoms reported Cardiovascular: no symptoms reported Genitourinary: no symptoms reported Musculoskeletal: see HPI Skin: no symptoms reported Psychiatric/Neurological: No Symptoms Reported Past Bcrwsri-Dirdiv-Scjjqw Hx Patient Social History Alcohol Beverage of Choice: Beer Drug of Choice: MARIJUANA Type Used: Cigarettes 2nd Hand Smoke Exposure: Yes Recent Hopitalizations: No Immunizations Up To Date Tetanus Booster (TDap): Less than 5yrs Seasonal Allergies Seasonal Allergies: No Past Medical History Surgeries: Yes (shoulder) Orthopedic Respiratory: No Currently Using CPAP: No Currently Using BIPAP: No Cardiac: No Neurological: No Genitourinary: No Gastrointestinal: Yes Gastroesophageal Reflux Musculoskeletal: No Endocrine: No HEENT: No Cancer: No Psychosocial: No Integumentary: No Blood Disorders: No Adverse Reaction/Blood Tranf: No Family Medical History Diabetes, Other Conditions/Hx Physical Exam Vital Signs Vital Signs - First Documented 04/09/20 21:12 Temp 36.2 Pulse 104 Resp 18 B/P (MAP) 123/81 (95) O2 Delivery Room Air Capillary Refill : Height, Weight, BMI Height: 6'0" Weight: 150lbs. oz. 68.177334iw; 20.00 BMI Method:Stated General Appearance: WD/WN, no apparent distress Respiratory: no respiratory distress, no accessory muscle use Shoulder: normal inspection, non-tender Elbow/Forearm: normal inspection, non-tender Wrist: Yes normal inspection, Yes non-tender Hand: normal inspection, Right, limited ROM (The thumb has a limited range of motion but the MCP and IP joint are normal in appearance there is no deformity of the thumb no ecchymosis no abrasions or lacerations or open wounds. No swelling or paronychia or apparent felon.) Neurologic/Tendon: normal sensation Neurologic/Psychiatric: alert, normal mood/affect, oriented x 3 Skin: normal color, warm/dry Procedures/Interventions Suture Size: 4-0 Progress/Results/Core Measures Results/Orders My Orders Orders - LASHONDA AMARAL APRN Hand, Right, 3 Views (04/09/20 21:12) Vital Signs/I&O 04/09/20 21:12 Temp 36.2 Pulse 104 Resp 18 B/P (MAP) 123/81 (95) O2 Delivery Room Air Departure Impression Primary Impression: Jammed interphalangeal joint of finger of right hand Qualified Codes: S69.91XA - Unspecified injury of right wrist, hand and fin yrn(s), initial encounter Disposition: HOME, SELF-CARE Condition: Stable Departure-Patient Inst. Decision time for Depature: 21:28 Referrals: NO,LOCAL PHYSICIAN (PCP/Family) Primary Care Physician Patient Instructions: Alexsandra Roberts (DC) Add. Discharge Instructions: 1. Wear the splint for the next few days. Return to ER for any concerns. Follow-up with your doctor next week if you have any persistent pain. All discharge instructions reviewed with patient and/or family. Voiced under standing. LASHONDA AMARAL APRN Apr 09, 2020 21:15
--- NOTE | 2020-04-09 21:31 | Diagnostic Imaging Report ---
CLINICAL HISTORY: Injury to the right thumb. Smash injury. COMPARISON: 07/04/2019. TECHNIQUE: 3 views of the right hand. FINDINGS: There is no acute fracture or dislocation of the right hand. Alignment is anatomic. The imaged joint spaces are preserved. The surrounding soft tissues are unremarkable. IMPRESSION: No acute fracture or dislocation in the right hand. Dictated by: Dictated on workstation # [id number]
[2020-04-09] MEDS ORDERED: KETOROLAC 60 MG/2 ML VIAL IM ONE (21:45)
[2020-04-09 22:38] VITALS: BP 123/81
== END 2020-04-09 22:40 | disposition home or self-care (01) ==
LOC: EDUNIT# 21:06 → ER 21:08
DX: S69.91XA Unspecified injury of right wrist, hand and finger(s), initial encounter (principal); Z83.3 Family history of diabetes mellitus; Z77.22 Contact with and (suspected) exposure to environmental tobacco smoke (acute) (chronic); Z88.1 Allergy status to other antibiotic agents; Z88.0 Allergy status to penicillin; W23.1XXA Caught, crushed, jammed, or pinched between stationary objects, initial encounter
CPT/HCPCS: 73130; 99282

== ENCOUNTER 2020-04-21 13:00 | Emergency (ER) | payer SELFPAY ==
[~2020-04-21] VITALS: Ht 182 cm; Wt 70.0 kg
[2020-04-21] MEDS ORDERED: oxyCODONE/APAP 5/325MG (PERCOCET 5) TABLET PO ONE ×2 (13:15→14:30)
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
[2020-04-21] MEDS ORDERED: DOXYCYCLINE 100 MG (VIBRAMYCIN) TABLET PO SCH (13:30)
[2020-04-21] MEDS ORDERED: LIDOCAINE 1% INJ 20 ML 20 ML VIAL ONE (13:30)
[2020-04-21] MEDS ORDERED: VANCOMYCIN INJECTION 1,000 MG in NS (IVPB) 250 ML IV SCH (13:45)
[2020-04-21] MEDS ORDERED: NS (IVPB) 250 ML ONE (13:50)
[2020-04-21] MEDS ORDERED: VANCOMYCIN 1000 MG/VIAL ONE (13:50)
[2020-04-21 13:56] LABS: BASOPHILS # (AUTO) 0.1 10^3/uL (0.0-0.1); BASOPHILS % (AUTO) 1 % (0-10); EOSINOPHILS # (AUTO) 0.2 10^3/uL (0.0-0.3); EOSINOPHILS % (AUTO) 2 % (0-10); HEMATOCRIT 41 % (40-54); HEMOGLOBIN 13.6 g/dL (13.3-17.7); LYMPHOCYTES # (AUTO) 2.1 10^3/uL (1.0-4.0); LYMPHOCYTES % (AUTO) 15 % (12-44); MEAN CORPUSCULAR HEMOGLOBIN 30 pg (25-34); MEAN CORPUSCULAR HGB CONC 33 g/dL (32-36); MEAN CORPUSCULAR VOLUME 90 fL (80-99); MEAN PLATELET VOLUME 10.1 fL (9.0-12.2); MONOCYTES # (AUTO) 1.4 10^3/uL (0.0-1.0); MONOCYTES % (AUTO) 10 % (0-12); NEUTROPHILS # (AUTO) 10.8 10^3/uL (1.8-7.8); NEUTROPHILS % (AUTO) 73 % (42-75); PLATELET COUNT 358 10^3/uL (130-400); WHITE BLOOD COUNT 14.6 10^3/uL (4.3-11.0)
[2020-04-21 14:09] LABS: CHLORIDE 102 MMOL/L (98-107); POTASSIUM 4.5 MMOL/L (3.6-5.0); SODIUM 137 MMOL/L (135-145)
[2020-04-21 14:10] LABS: CALCIUM 9.5 MG/DL (8.5-10.1)
[2020-04-21 14:11] LABS: GLUCOSE 85 MG/DL (70-105)
[2020-04-21 14:13] LABS: CARBON DIOXIDE 23 MMOL/L (21-32)
[2020-04-21 14:15] LABS: GFR ESTIMATED > 60
[2020-04-21 14:16] LABS: BUN/CREATININE RATIO 21
[2020-04-21 14:17] LABS: BASOPHILS % (MANUAL) 0 %; EOSINOPHILS % (MANUAL) 2 %; LYMPHOCYTES % (MANUAL) 14 %; MONOCYTES % (MANUAL) 11 %; NEUTROPHILS % (MANUAL) 73 %; RBC MORPH NORMAL
[2020-04-21] MEDS ORDERED: DOXY100T2 PO (14:25)
[2020-04-21] MEDS ORDERED: OXYC-471 PO (14:25)
[2020-04-21] MEDS ORDERED: KETOROLAC 30 MG/ML VIAL IVP ONE (14:30)
--- NOTE | 2020-04-21 14:53 | NUR ---
REPORT GIVEN TO DONALD.
[2020-04-21 15:15] VITALS: BP 133/72
== END 2020-04-21 15:15 | disposition home or self-care (01) ==
LOC: EDUNIT# 13:00 → ER 13:02
DX: L03.011 Cellulitis of right finger (principal); Z77.22 Contact with and (suspected) exposure to environmental tobacco smoke (acute) (chronic); Z88.0 Allergy status to penicillin; Z88.1 Allergy status to other antibiotic agents; Z83.3 Family history of diabetes mellitus
CPT/HCPCS: 36415; 80048; 85007; 85027; 86141; 87070; 87077; 87205

== ENCOUNTER 2021-08-04 15:51 | Emergency (ER) | payer SELFPAY ==
[~2021-08-04] VITALS: Ht 182 cm; Wt 72.4 kg
[~2021-08-04 15:51] MED LIST changes: -DOXY100C2 PO; +DOXY100C5 PO; +OXYC1TAB11 PO; -SULF1TAB35 PO; +SULF1TAB38 PO
[2021-08-04] MEDS ORDERED: KETOROLAC 30 MG/ML VIAL IM STA (15:58)
[2021-08-04] MEDS ORDERED: LIDOCAINE 1% INJ 20 ML VIAL INJ ONE (16:00)
[2021-08-04] MEDS ORDERED: cefTRIAXone 1,000 MG VIAL IM ONE (16:00)
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
[2021-08-04] MEDS ORDERED: NAPR-1071 PO (16:09)
[2021-08-04] MEDS ORDERED: CEPH500T PO (16:09)
[2021-08-04] MEDS ORDERED: LIDOCAINE 1% INJ 50 ML (XYLOCAINE) VIAL ONE (16:09)
[2021-08-04 16:22] VITALS: BP 120/83
== END 2021-08-04 16:23 | disposition home or self-care (01) ==
LOC: EDUNIT# 15:51 → ER FS 15:52
DX: T25.422A Corrosion of unspecified degree of left foot, initial encounter (principal); L03.116 Cellulitis of left lower limb
CPT/HCPCS: 99284

== ENCOUNTER 2021-12-10 16:14 | Emergency (ER) | payer SELFPAY ==
[~2021-12-10] VITALS: Ht 182 cm; Wt 67.7 kg
[~2021-12-10 16:14] MED LIST changes: +CEPH500T PO; +NAPR-1071 PO
[2021-12-10] MEDS ORDERED: SULF1TAB38 PO (16:46)
--- NOTE | 2021-12-10 16:46 | ED Integumentary General ---
General Chief Complaint: Skin/Wound Problems Stated Complaint: POSS PSIDER BITE ON ABDOMEN Nursing Triage Note: ARRIVED VIA AMB TO TRIAGE. STATES HE THINKS HE HAS A SPIDER BITE ON HIS ABD THAT HAS BEEN THERE X2 DAYS. Source: patient Exam Limitations: no limitations History of Present Illness Date Seen by Provider: Dec 10, 2021 Time Seen by Provider: 16:30 Initial Comments Patient is a 36-year-old male who presents to the emergency department today with a chief complaint of possible "spider bite" to the anterior abdominal wall. Patient noticed it about 2 days ago. 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 He denies fevers or chills. No nausea vomiting or appetite disturbance. He states it is tender to touch. He has been soaking it with hot water. He states that the pain and the redness was a little bit worse today. He is not a diabetic. He does smoke cigarettes. Timing/Duration: getting worse (2 days) Severity: moderate Location: torso Possible Cause: other (Possible insect bite) Associated Symptoms: denies symptoms Allergies and Home Medications Allergies Coded Allergies: amoxicillin (Verified Allergy, Unknown, 09/15/18) clavulanic acid (Verified Allergy, Unknown, 09/15/18) Uncoded Allergies: ARYTHROMYCIN (Allergy, Unknown, 09/15/18) PCN (Allergy, Unknown, 09/15/18) Patient Home Medication List Home Medication List Reviewed: Yes Cephalexin (Cephalexin) 500 Mg Tablet, 500 MG PO QID Prescribed by: SEBLE MAZARIEGOS on 08/04/21 1609 Doxycycline Hyclate (Doxycycline Hyclate) 100 Mg Tablet, 100 MG PO BID Prescribed by: LASHONDA AMARAL on 04/21/20 142 Naproxen (Naprosyn) 500 Mg Tablet, 500 MG PO BID Prescribed by: SEBLE MAZARIEGOS on 08/04/21 1609 Oxycodone HCl/Acetaminophen (Oxycodone-Acetaminophen 5-325) 1 Each Tablet, 1 EACH PO Q4H PRN for PAIN-MODERATE Prescribed by: LASHONDA AMARAL on 04/21/20 142 Review of Systems Review of Systems Constitutional: see HPI Respiratory: no symptoms reported Cardiovascular: no symptoms reported Gastrointestinal: no symptoms reported Musculoskeletal: no symptoms reported Skin: other (Wound anterior abdominal wall) All Other Systems Reviewed Negative Unless Noted: Yes Past Ormmhcg-Xrnpes-Fyvein Hx Patient Social History Tobacco Use?: Yes Smoking Status: Current Everyday Smoker Substance use?: No Alcohol Use?: No Immunizations Up To Date Tetanus Booster (TDap): Less than 5yrs Seasonal Allergies Seasonal Allergies: No Past Medical History Surgeries: Yes (shoulder) Orthopedic Respiratory: No Currently Using CPAP: No Currently Using BIPAP: No Cardiac: No Neurological: No Genitourinary: No Gastrointestinal: Yes Gastroesophageal Reflux Musculoskeletal: No Endocrine: No HEENT: No Cancer: No Psychosocial: No Integumentary: No Blood Disorders: No Adverse Reaction/Blood Tranf: No Family Medical History Diabetes, Other Conditions/Hx Physical Exam Vital Signs Vital Signs - First Documented 12/10/21 16:20 Temp 36.5 Pulse 93 Resp 16 B/P (MAP) 118/80 (93) Pulse Ox 98 O2 Delivery Room Air Capillary Refill : Less Than 3 Seconds General Appearance: WD/WN, no apparent distress Cardiovascular: regular rate, rhythm Respiratory: lungs clear, normal breath sounds, no respiratory distress, no accessory muscle use Gastrointestinal: normal bowel sounds, non tender, soft Neurologic/Psychiatric: normal mood/affect, oriented x 3 Skin: normal color, warm/dry, other (Small shallow wound to the right of midline, anterior abdominal wall just above the umbilicus. Wound itself is approximately half a centimeter. There is some overlying scab and minimally necrotic tissue. No fluctuance. Induration is about a centimeter and a half with surrounding erythema. Tender to palpation.) Procedures/Interventions Suture Size: 4-0 Progress/Results/Core Measures Results/Orders Vital Signs/I&O 12/10/21 16:20 Temp 36.5 Pulse 93 Resp 16 B/P (MAP) 118/80 (93) Pulse Ox 98 O2 Delivery Room Air Blood Pressure Mean: 93 Progress Progress Note : Time: 16:42 Progress Note 22-gauge needle used to gently unroofed the lesion on the anterior abdominal wall so that a culture could be obtained. Culture sent off. Patient states maksim t he has been on Bactrim before for wound similar to this. We will send a prescription of Bactrim to his local pharmacy. Patient is encouraged to drink lots of water. He is encouraged to stop smoking. Return precautions provided. All questions are sought and answered. Departure Impression Primary Impression: Insect bite of abdominal wall Qualified Codes: S30.861A - Insect bite (nonvenomous) of abdominal wall, initial encounter; W57.XXXA - Bitten or stung by nonvenomous insect and other nonvenomous arthropods, initial encounter Disposition: 01 HOME, SELF-CARE Condition: Stable Departure-Patient Inst. Decision time for Depature: 16:43 Referrals: [facility],LOCAL PHYSICIAN (PCP) Primary Care Physician Patient Instructions: Wound Care (DC) Add. Discharge Instructions: Keep the wound as clean as possible. Wash gently twice a day with a gentle soap and water. You can apply a little triple antibiotic ointment to the wound twice a day. Bactrim DS tablets, 1 twice a day for 10 days. PLease complete the entire cours e - all 10 days, Drink lots of water while taking the Bactrim. If, after 2 days on the antibiotics, you notice increased pain, redness or develop fever, please come back to the Emergency Department for re-evaluation. Do not pick or scratch or squeeze at the area, let it drain on its own. Over the counter tylenol or ibuprofen as needed for discomfort/pain. Scripts Sulfamethoxazole/Trimethoprim (Bactrim Ds Tablet) 1 Each Tablet 1 EACH PO BID for 10 Days, #20 TAB Prov: DEZ PEARSON MD 12/10/21 DEZ PEARSON MD Dec 10, 2021 16:46
[2021-12-10 16:54] VITALS: BP 108/74
== END 2021-12-10 16:52 | disposition home or self-care (01) ==
LOC: EDUNIT# 16:14 → ER 16:16
DX: S30.861A Insect bite (nonvenomous) of abdominal wall, initial encounter (principal); F17.210 Nicotine dependence, cigarettes, uncomplicated; Z28.310 Unvaccinated for COVID-19; W57.XXXA Bitten or stung by nonvenomous insect and other nonvenomous arthropods, initial encounter
CPT/HCPCS: 87070; 87077; 87106; 87186; 87205; 99285

== ENCOUNTER 2022-04-23 22:32 | Inpatient (IN) | payer SELFPAY ==
[~2022-04-23] VITALS: Ht 182 cm; Wt 72.9 kg
[2022-04-23] MEDS ORDERED: KETOROLAC 30 MG/ML VIAL IVP STA (22:49)
[2022-04-23] MEDS ORDERED: CEFEPIME INJECTION 1,000 MG in NS (IVPB) 50 ML IV ONE (23:00)
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
[2022-04-23 23:03] LABS: BASOPHILS # (AUTO) 0.1 10^3/uL (0.0-0.1); BASOPHILS % (AUTO) 1 % (0-10); EOSINOPHILS # (AUTO) 0.2 10^3/uL (0.0-0.3); EOSINOPHILS % (AUTO) 1 % (0-10); HEMATOCRIT 40 % (40-54); HEMOGLOBIN 13.3 g/dL (13.3-17.7); LYMPHOCYTES # (AUTO) 1.8 10^3/uL (1.0-4.0); LYMPHOCYTES % (AUTO) 14 % (12-44); MEAN CORPUSCULAR HEMOGLOBIN 30 pg (25-34); MEAN CORPUSCULAR HGB CONC 34 g/dL (32-36); MEAN CORPUSCULAR VOLUME 89 fL (80-99); MEAN PLATELET VOLUME 10.1 fL (9.0-12.2); MONOCYTES # (AUTO) 1.2 10^3/uL (0.0-1.0); MONOCYTES % (AUTO) 9 % (0-12); NEUTROPHILS # (AUTO) 9.5 10^3/uL (1.8-7.8); NEUTROPHILS % (AUTO) 74 % (42-75); PLATELET COUNT 343 10^3/uL (130-400); WHITE BLOOD COUNT 12.8 10^3/uL (4.3-11.0)
[2022-04-23 23:16] LABS: POTASSIUM 3.8 MMOL/L (3.6-5.0)
[2022-04-23 23:18] LABS: CALCIUM 9.5 MG/DL (8.5-10.1)
[2022-04-23 23:20] LABS: ERYTHROCYTE SEDIMENTATION RATE 13 MM/HR (0-15)
[2022-04-23] MEDS: VANCOMYCIN INJECTION 750 MG in NS (IVPB) 250 ML IV SCH (23:20)
[2022-04-23 23:22] LABS: CREATININE SERUM 1.13 MG/DL (0.60-1.30)
[2022-04-24] MEDS ORDERED: fentaNYL INJ 100 MCG/2 ML AMP IVP ONE (00:45)
[2022-04-24 02:05] VITALS: BP 108/56
[2022-04-24] MEDS: LACTATED RINGERS 1,000 ML IV SCH ×3 (02:10→13:31)
[2022-04-24] MEDS ORDERED: LACTATED RINGERS 1,000 ML IV ONE (02:11)
[2022-04-24] MEDS ORDERED: ACETAMINOPHEN 500 MG TAB (TYLENOL) PO PRN (02:45)
[2022-04-24] MEDS ORDERED: ONDANSETRON 4 MG/2 ML (SDV) Z0FRAN IV PRN (02:45)
[2022-04-24] MEDS ORDERED: IBUPROFEN 800 MG (MOTRIN) TAB PO PRN (02:45)
[2022-04-24] MEDS: metroNIDAZOLE 500 MG/100 ML IVPB (PRE-MIX) IV SCH ×2 (03:09→13:30)
[2022-04-24 04:55] VITALS: BP 136/71
[2022-04-24] MEDS: CEFEPIME 1,000 MG/NS 50 ML IVPB IV SCH ×8 (05:12→22:06)
[2022-04-24 05:36] LABS: BASOPHILS # (AUTO) 0.1 10^3/uL (0.0-0.1); BASOPHILS % (AUTO) 1 % (0-10); EOSINOPHILS # (AUTO) 0.2 10^3/uL (0.0-0.3); EOSINOPHILS % (AUTO) 2 % (0-10); HEMATOCRIT 38 % (40-54); HEMOGLOBIN 12.2 g/dL (13.3-17.7); LYMPHOCYTES # (AUTO) 2.2 10^3/uL (1.0-4.0); LYMPHOCYTES % (AUTO) 28 % (12-44); MEAN CORPUSCULAR HEMOGLOBIN 29 pg (25-34); MEAN CORPUSCULAR HGB CONC 32 g/dL (32-36); MEAN CORPUSCULAR VOLUME 89 fL (80-99); MONOCYTES # (AUTO) 0.9 10^3/uL (0.0-1.0); MONOCYTES % (AUTO) 11 % (0-12); NEUTROPHILS # (AUTO) 4.6 10^3/uL (1.8-7.8); NEUTROPHILS % (AUTO) 58 % (42-75); PLATELET COUNT 306 10^3/uL (130-400); WHITE BLOOD COUNT 7.9 10^3/uL (4.3-11.0)
[2022-04-24 05:54] LABS: ALBUMIN 3.5 GM/DL (3.2-4.5); POTASSIUM 3.9 MMOL/L (3.6-5.0)
[2022-04-24 05:55] LABS: CALCIUM 8.7 MG/DL (8.5-10.1)
[2022-04-24 05:56] LABS: TOTAL PROTEIN 6.1 GM/DL (6.4-8.2)
[2022-04-24 05:58] LABS: BILIRUBIN,TOTAL 0.3 MG/DL (0.1-1.0)
[2022-04-24 06:00] LABS: CREATININE SERUM 1.03 MG/DL (0.60-1.30)
--- NOTE | 2022-04-24 06:18 | Diagnostic Imaging Report ---
HISTORY: Right hand pain TECHNIQUE: 3 views of the right hand COMPARISON: 04/09/2020 FINDINGS: There does appear to be soft tissue swelling about the 1st and 2nd digits of the right hand. No soft tissue gas or radiopaque foreign body is seen. There does appear to be a deformity at the fortino of the distal phalanges. These are new since March 2020, but are thought to be chronic. IMPRESSION: 1. No acute fracture or dislocation is seen in the right hand. 2. Soft tissue swelling of the right 1st and 2nd fingers. 3. Cortical irregularity at the 1st and 2nd distal phalangeal fortino. This does not appear to be acute, may be from remote injury. Infection is not excluded. If clinically indicated, cross-sectional imaging could be considered. Findings regarding 1st and 2nd distal phalanges were not included in the preliminary report, otherwise agree with the preliminary report. These additional findings were communicated to the Emergency Room via the additional findings tracking sheet. Dictated by: Dictated on workstation # [id number]
[2022-04-24] MEDS: VANCOMYCIN INJECTION 750 MG in NS (IVPB) 250 ML IV SCH (06:58)
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
[2022-04-24 08:17] VITALS: BP 102/64
[2022-04-24] MEDS: VANCOMYCIN 750 MG/NS 250 ML IVPB IV SCH ×6 (08:30→23:33)
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
[2022-04-24 11:55] VITALS: BP 122/64
--- NOTE | 2022-04-24 12:59 | Diagnostic Imaging Report ---
INDICATION: Cellulitis of the right index finger for four days. FINDINGS: Sonographic interrogation of the right index finger was performed. There appears to be some soft tissue swelling involving the right index finger. There is an area of heterogeneity and hypoechogenicity measuring 15 x 3 x 5 mm. This does show some peripheral vascularity but no internal vascularity. Very early abscess or phlegmon cannot be excluded. No other abnormalities are seen. IMPRESSION: Ill-defined region of hypoechogenicity in the right index finger as well as soft tissue swelling, consistent with either very early abscess formation or phlegmon. Dictated by: Dictated on workstation # [id number]
[2022-04-24] MEDS ORDERED: OMEP20TA56 PO (13:55)
[2022-04-24] MEDS ORDERED: ACET-2267 PO (13:55)
[2022-04-24] MEDS ORDERED: IBUP-2473 PO (13:56)
[2022-04-24] MEDS: HYDROcodone/APAP 7.5 MG/325 MG (LORTAB, LORCET PLUS) TABLET PO PRN ×2 (14:28→20:14)
[2022-04-24] MEDS ORDERED: NICOTINE 14 MG (NICODERM) PATCH TD ONE (16:01)
[2022-04-24] MEDS: NICOTINE 14 MG (NICODERM) PATCH TD SCH (16:07)
[2022-04-24 16:08] VITALS: BP 122/81
[2022-04-24 19:27] VITALS: BP 121/64
[2022-04-24] MEDS ORDERED: TROUGH ORDER-PHARMACY XX NR (23:00)
[2022-04-25] VITALS (14 sets, daily range): BP systolic 99–133; BP diastolic 59–79
[2022-04-25] MEDS: CEFEPIME 1,000 MG/NS 50 ML IVPB IV SCH ×8 (04:06→22:38)
[2022-04-25] MEDS: LACTATED RINGERS 1,000 ML IV SCH ×3 (04:08→19:35)
[2022-04-25] MEDS: HYDROcodone/APAP 7.5 MG/325 MG (LORTAB, LORCET PLUS) TABLET PO PRN ×3 (05:31→20:39)
[2022-04-25 05:50] LABS: BASOPHILS # (AUTO) 0.1 10^3/uL (0.0-0.1); BASOPHILS % (AUTO) 1 % (0-10); EOSINOPHILS # (AUTO) 0.2 10^3/uL (0.0-0.3); EOSINOPHILS % (AUTO) 3 % (0-10); HEMATOCRIT 39 % (40-54); HEMOGLOBIN 13.1 g/dL (13.3-17.7); LYMPHOCYTES # (AUTO) 1.8 10^3/uL (1.0-4.0); LYMPHOCYTES % (AUTO) 29 % (12-44); MEAN CORPUSCULAR HEMOGLOBIN 30 pg (25-34); MEAN CORPUSCULAR HGB CONC 34 g/dL (32-36); MEAN CORPUSCULAR VOLUME 90 fL (80-99); MEAN PLATELET VOLUME 10.4 fL (9.0-12.2); MONOCYTES # (AUTO) 0.6 10^3/uL (0.0-1.0); MONOCYTES % (AUTO) 10 % (0-12); NEUTROPHILS # (AUTO) 3.5 10^3/uL (1.8-7.8); NEUTROPHILS % (AUTO) 57 % (42-75); PLATELET COUNT 325 10^3/uL (130-400); WHITE BLOOD COUNT 6.1 10^3/uL (4.3-11.0)
[2022-04-25 05:57] LABS: ALBUMIN 3.4 GM/DL (3.2-4.5)
[2022-04-25 05:58] LABS: POTASSIUM 4.5 MMOL/L (3.6-5.0)
[2022-04-25 05:59] LABS: CALCIUM 8.5 MG/DL (8.5-10.1)
[2022-04-25 06:00] LABS: TOTAL PROTEIN 6.2 GM/DL (6.4-8.2)
[2022-04-25 06:02] LABS: BILIRUBIN,TOTAL 0.2 MG/DL (0.1-1.0)
[2022-04-25 06:04] LABS: CREATININE SERUM 0.98 MG/DL (0.60-1.30)
--- NOTE | 2022-04-25 07:47 | Progress Note - Surgery ---
CÉSAR MARIN 04/25/22 0747: Subjective Date Seen by a Provider: Apr 25, 2022 Time Seen by a Provider: 07:43 Subjective/Events-last exam Our patient is a 36 year old M with a previous history of MRSA infections admitted for cellulitis and possible abscess of the right index finger. He states that his finger is more painful this morning than it was when we saw him yesterday afternoon. Notes that his pain is constant, 9/10, and radiates down into the dorsum of his hand (between the 2nd and 3rd metacarpophalangeal joints) and about assisted up his dorsal forearm. He notes that on admission, the pain traveled all the way to his AC area but does so no longer. He believes that the pain is worsened by the warm compress. He denies having any further drainage from the wound and hasn't eaten or drank anything since 10 pm last night. He denies any chills, nausea, vomiting, SOB, palpitations, dysuria, frequency or pain anywhere other than his right finger and arm. His finger does not look any more swollen than it did yesterday but the tissue is boggy from contact with the warm compress. Review of Systems General: No Chills; Fatigue HEENT: Head Aches (intermittent); No Visual Changes Pulmonary: No Dyspnea, No Cough Cardiovascular: No: Chest Pain, Palpitations Gastrointestinal: No: Nausea, Vomiting Genitourinary: No Dysuria, No Frequency Musculoskeletal: arm pain (Notes that his arm pain feels better than it did yesterday but his finger pain has worsened since yesterday afternoon) Neurological: No: Weakness, Numbness Focused Exam Sepsis Stage: Ruled Out Reason for ruling out sepsis: Patient does not meet any of the SIRS criteria Lactate Level 04/23/22 23:55: Lactic Acid Level 0.97 Objective Exam Vital Signs Date Time Temp Pulse Resp B/P (MAP) Pulse Ox O2 Delivery O2 Flow Rate FiO2 04/25/22 03:40 36.7 70 18 109/67 (81) 97 Room Air 04/25/22 00:25 36.0 79 18 114/65 (81) 97 Room Air 04/24/22 20:38 Room Air 04/24/22 19:27 37.2 84 20 121/64 (83) 99 04/24/22 16:08 36.9 71 18 122/81 (95) 99 Room Air 04/24/22 11:55 36.7 77 18 122/64 (83) 98 Room Air 04/24/22 10:20 Room Air 04/24/22 08:17 36.4 75 18 102/64 (77) 100 Room Air 04/24/22 08:00 Room Air I & O 04/25/22 07:00 Intake Total 2600 ml Balance 2600 ml Capillary Refill : Less Than 3 Seconds General Appearance: WD/WN, Mild Distress HEENT: PERRL/EOMI; No Scleral Icterus (L), No Scleral Icterus (R) Neck: Non Tender, Supple; No Carotid Bruit, No Lymphadenopathy (L), No Lymphadenopathy (R), No Thyromegaly Respiratory: Chest Non Tender, Normal Breath Sounds, No Accessory Muscle Use, No Respiratory Distress Cardiovascular: Regular Rate, Rhythm, No Gallop, No Murmur Peripheral Pulses: 2+ Radial Pulses (R), 2+ Radial Pulses (L) Gastrointestinal: non tender, soft, no organomegaly Extremity: No Calf Tenderness, No Pedal Edema, Other (Posterior aspect of right 2nd digit has swelling and erythema from PIP joint to MCP joint, there is an open wound on the posterior side of the 2nd digit, the swelling is not circumferential around the anterior part of the finger. The finger can be completely straightened though with significant pain as well as flexed to 90 degrees with a majority of the pain occurring in the dorsal finger under the wound site. The erythema does not extend beyond the marked lines on his finger.) Neurologic/Psychiatric: Alert, Oriented x3 Skin: Warm/Dry; No Diaphoresis; Other (Fingers still appear dirty with dark material in the nails bilaterally) Results Lab Laboratory Tests 04/24/22 22:45: Vancomycin Level Trough 14.1 04/25/22 05:19: White Blood Count 6.1, Red Blood Count 4.36, Hemoglobin 13.1L, Hematocrit 39L, Mean Corpuscular Volume 90, Mean Corpuscular Hemoglobin 30, Mean Corpuscular Hemoglobin Concent 34, Red Cell Distribution Width 13.1, Platelet Count 325, Mean Platelet Volume 10.4, Immature Granulocyte % (Auto) 0, Neutrophils (%) (Auto) 57, Lymphocytes (%) (Auto) 29, Monocytes (%) (Auto) 10, Eosinophils (%) (Auto) 3, Basophils (%) (Auto) 1, Neutrophils # (Auto) 3.5, Lymphocytes # (Auto) 1.8, Monocytes # (Auto) 0.6, Eosinophils # (Auto) 0.2, Basophils # (Auto) 0.1, Immature Granulocyte # (Auto) 0.0, Sodium Level 139, Potassium Level 4.5, Chloride Level 105, Carbon Dioxide Level 26, Anion Gap 8, Blood Urea Nitrogen 12, Creatinine 0.98, Estimat Glomerular Filtration Rate 104, BUN/Creatinine Ratio 12, Glucose Level 88, Calcium Level 8.5, Corrected Calcium 9.0, Total Bilirubin 0.2, Aspartate Amino Transf (AST/SGOT) 18, Alanine Aminotransferase (ALT/SGPT) 13, Alkaline Phosphatase 74, Total Protein 6.2L, Albumin 3.4 Microbiology 04/24/22 Blood Culture - Preliminary, Resulted No growth Radiology Date of Exam:04/24/22 US RIGHT UP EXT NONVASC [id number] INDICATION: Cellulitis of the right index finger for four days. FINDINGS: Sonographic interrogation of the right index finger was performed. There appears to be some soft tissue swelling involving the right index finger. There is an area of heterogeneity and hypoechogenicity measuring 15 x 3 x 5 mm. This does show some peripheral vascularity but no internal vascularity. Very early abscess or phlegmon cannot be excluded. No other abnormalities are seen. IMPRESSION: Ill-defined region of hypoechogenicity in the right index finger as well as soft tissue swelling, consistent with either very early abscess formation or phlegmon. Dictated by: Dictated on workstation # [id number] Dict: 04/24/22 1247 Trans: 04/24/22 1614 [id number] Interpreted by: LYLE MARIEE MD Electronically signed by: LYLE MARIEE MD 04/24/22 1614 Assessment/Plan Assessment/Plan Admission Diagonsis Cellulitis of right index finger with possible abscess Assessment/Plan Right index finger cellulitis with abscess - small abscess confirmed on US, no improvement with use of warm moist compress. Pain no longer radiates as far as the AC area but is back to a 9/10. Continue antibiotic treatment and adequate pain management and monitor for signs of flexor tenosynovitis. Patient may need I&D and has been NPO since 10 pm last night. Patient should continue to wash his hands and elevate the site to assist with drainage. Leukocytosis - WBC has fallen to 6.1 from 12.8 on admission. Mild anemia - HGB is 13.1 this morning down from 13.3 on admission. BHAVIN ODELL DO 04/25/22 1152: Subjective Time Seen by a Provider: 11:17 Subjective/Events-last exam Pt seen and examined, stated pain is same or worse and he doesn't think the erythema or swelling has gotten better. He states the warm compresses did not help. Review of Systems General: No Chills; Fatigue HEENT: Head Aches (intermittent) Pulmonary: No Dyspnea, No Cough Cardiovascular: No: Chest Pain, Palpitations Gastrointestinal: No: Nausea, Vomiting Musculoskeletal: arm pain (Notes that his arm pain feels better than it did yesterday but his finger pain has worsened since yesterday afternoon), hand pain (finger) Objective Exam General Appearance: WD/WN, Mild Distress (secondary to pain) HEENT: PERRL/EOMI Respiratory: Chest Non Tender, Lungs Clear, Normal Breath Sounds, No Accessory Muscle Use, No Respiratory Distress Cardiovascular: Regular Rate, Rhythm, No Murmur Peripheral Pulses: 2+ Radial Pulses (R), 2+ Radial Pulses (L) Gastrointestinal: non tender, soft Extremity: No Calf Tenderness, Other (Posterior aspect of right 2nd digit has swelling and erythema from PIP joint to MCP joint, there is an open wound on the posterior side of the 2nd digit, the swelling is not circumferential around the anterior part of the finger. The finger can be completely straightened though with significant pain as well as flexed to 90 degrees with a majority of the pain occurring in the dorsal finger under the wound site. The erythema does not extend beyond the marked lines on his finger.) Neurologic/Psychiatric: Alert, Oriented x3 Skin: Other (Fingers still appear dirty with dark material in the nails bilaterally) Assessment/Plan Assessment/Plan Assessment/Plan Cellulitis with Abscess Right 2nd Digit Finger is not better and warm compresses did not help, will take him to OR today for I&D. Discussed the procedure with pt; risks and complications not limited to pain, bleeding, infection, scar, damage to nerves and need for further procedure. If it does not improve after this he may need to get transferred to a hand surgeon. All questions answered to his satisfaction. He has been NPO since midnight. Will get consent and bring him down. Supervisory-Addendum Brief Verification & Attestation Participated in pt care: history, MDM, physical Personally performed: exam, history, MDM, supervision of care Care discussed with: Medical Student Procedures: n/a Verification and Attestation of Medical Student E/M Service A medical student performed and documented this service. I then reviewed and verified all information documented by the medical student and made modifications to such information, when appropriate. I personally performed a physical exam, medical decision making and then discussed any differences between the notes and made revisions as necessary to create one note. Bhavin Odell , 04/25/22 , 11:52 CÉSAR MARIN Apr 25, 2022 07:47 BHAVIN ODELL DO Apr 25, 2022 11:52
[2022-04-25] MEDS: NICOTINE PATCH REMOVAL TP SCH (07:55)
[2022-04-25] MEDS: NICOTINE 14 MG (NICODERM) PATCH TD SCH (07:56)
[2022-04-25] MEDS: VANCOMYCIN 750 MG/NS 250 ML IVPB IV SCH ×6 (07:56→23:34)
[2022-04-25] MEDS: fentaNYL INJ 100 MCG/2 ML AMP IV PRN ×3 (08:03→17:06)
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
[2022-04-25] MEDS ORDERED: fentaNYL INJ 100 MCG/2 ML AMP ONE (12:03)
[2022-04-25] MEDS ORDERED: proPOfol 200 MG/20 ML (DIPRIVAN) VIAL IV ONE (12:03)
[2022-04-25] MEDS ORDERED: MIDAZOLAM 2 MG/2 ML (VERSED) VIAL ONE (12:03)
[2022-04-25] MEDS ORDERED: LIDOCAINE PF 2% 5 ML (XYLOCAINE) VIAL ONE (12:03)
[2022-04-25] MEDS ORDERED: ONDANSETRON 4 MG/2 ML (SDV) Z0FRAN ONE (12:03)
[2022-04-25] MEDS ORDERED: SEVOFLURANE (ULTANE) 15 ML INHAL SOLN ONE (12:53)
--- NOTE | 2022-04-25 12:56 | Progress Note-Post Operative ---
Post-Operative Progess Note Surgeon (s)/Senior Civil Engineer (s) Surgeon ROBYN SUÁREZ DO Senior Civil Engineer: SANDRA Mcneill Pre-Operative Diagnosis Right hand 2nd digit Cellulitis possible abscess Post-Operative Diagnosis same pending path Procedure & Operative Findings Date of Procedure 04/25/22 Procedure Performed/Findings I&D right hand 2nd digit Anesthesia Type LMA Estimated Blood Loss Estimated blood loss (mL): scant Specimens/Packing Specimens Removed abscess culture ROBYN SUÁREZ DO Apr 25, 2022 12:56
[2022-04-25] MEDS ORDERED: morphine INJ 10 MG/ML 1ML (SYR OR VIAL) IVP ONE (13:00)
[2022-04-25] MEDS ORDERED: PROMETHAZINE INJ 25 MG/ML (PHENERGAN) AMP IVP ONE (13:00)
[2022-04-25] MEDS ORDERED: LACTATED RINGERS 1,000 ML IV PRN (13:00)
[2022-04-25] MEDS ORDERED: ONDANSETRON 4 MG/2 ML (SDV) Z0FRAN IVP PRN (13:00)
[2022-04-25] MEDS ORDERED: LIDOCAINE 1% INJ 20 ML VIAL INJ NR (13:15)
--- NOTE | 2022-04-25 14:53 | Anesthesia-General Post-Op ---
General Patient Condition Mental Status/LOC: Same as Preop Cardiovascular: Satisfactory Nausea/Vomiting: Absent Respiratory: Satisfactory Pain: Controlled Complications: Absent Post Op Complications Complications None Follow Up Care/Instructions Patient Instructions None needed. Anesthesia/Patient Condition Patient Condition Patient is doing well, no complaints, stable vital signs, no apparent adverse anesthesia problems. No complications reported per nursing. JARED LOVELL CRNA Apr 25, 2022 14:52
--- NOTE | 2022-04-25 19:38 | OPERATIVE REPORT ---
DATE OF SERVICE: 04/25/2022 PREOPERATIVE DIAGNOSIS: Right second digit on a hand abscess. POSTOPERATIVE DIAGNOSIS: Right second digit on a hand abscess, pending pathology. PROCEDURE PERFORMED: Incision and drainage of right hand second digit. SURGEON: Bhavin Odell DO DOOR FRAME BUILDER: Tony Mata MS3. ANESTHESIA: LMA. SPECIMENS: Culture. ESTIMATED BLOOD LOSS: Scant. FLUIDS: Per anesthesia. POSTOPERATIVE CONDITION: Stable. INDICATIONS: The patient is a 36-year-old male who has an abscess and cellulitis on his right second digit, the pointer finger. This has not been getting any better on IV antibiotics, pain and swollen, needed to get this drained, so hopefully will start improving. It was not getting worse. FINDINGS: The patient had an small abscess on the right pointer finger, drained. A culture obtained and sent to pathology. DESCRIPTION OF PROCEDURE: After informed consent was obtained, the patient was brought to the operating room. He was placed on table in supine position. He was sterilely prepped and draped in normal fashion. I then did a digital block using lidocaine at the base of the metacarpal and then going down the sides to create a ring block. Once this was done, I then used a #15 blade and made an incision on the dorsal aspect right over the area of the abscess, cut out a little bit of purulent fluid, obtained a culture, sent to pathology and tried to squeeze this out, got a little bit more output, only got maybe 2 or 3 mL of pus. Again tried to squeeze, do not get anything else out, opened this up a little bit with a hemostat, just along the sides to get this to drain and then copiously irrigated with about 180 mL of normal saline, did not get any more purulent fluid at this point, then elected to finish. Area was cleaned and dried and a dressing placed. The patient tolerated the procedure and transferred to recovery room in stable condition. Sponge and needle count correct at the end of the case. Job ID: [id number] DocumentID: [id number] Dictated Date: 04/25/2022 15:26:49 Storeperson Date: 04/25/2022 19:36:00 Dictated By: BHAVIN ODELL DO
[2022-04-26 04:38] VITALS: BP 95/55
[2022-04-26] MEDS: CEFEPIME 1,000 MG/NS 50 ML IVPB IV SCH ×4 (04:38→11:14)
[2022-04-26 05:43] LABS: BASOPHILS # (AUTO) 0.1 10^3/uL (0.0-0.1); BASOPHILS % (AUTO) 1 % (0-10); EOSINOPHILS # (AUTO) 0.2 10^3/uL (0.0-0.3); EOSINOPHILS % (AUTO) 4 % (0-10); HEMATOCRIT 42 % (40-54); LYMPHOCYTES # (AUTO) 1.6 10^3/uL (1.0-4.0); LYMPHOCYTES % (AUTO) 36 % (12-44); MEAN CORPUSCULAR HEMOGLOBIN 30 pg (25-34); MEAN CORPUSCULAR HGB CONC 34 g/dL (32-36); MEAN CORPUSCULAR VOLUME 89 fL (80-99); MEAN PLATELET VOLUME 10.3 fL (9.0-12.2); MONOCYTES # (AUTO) 0.5 10^3/uL (0.0-1.0); MONOCYTES % (AUTO) 11 % (0-12); NEUTROPHILS # (AUTO) 2.2 10^3/uL (1.8-7.8); NEUTROPHILS % (AUTO) 48 % (42-75); PLATELET COUNT 319 10^3/uL (130-400); WHITE BLOOD COUNT 4.5 10^3/uL (4.3-11.0)
[2022-04-26 05:52] LABS: ALBUMIN 3.5 GM/DL (3.2-4.5); POTASSIUM 4.3 MMOL/L (3.6-5.0)
[2022-04-26 05:53] LABS: CALCIUM 8.7 MG/DL (8.5-10.1)
[2022-04-26 05:54] LABS: TOTAL PROTEIN 6.5 GM/DL (6.4-8.2)
[2022-04-26 05:56] LABS: BILIRUBIN,TOTAL 0.2 MG/DL (0.1-1.0)
[2022-04-26 05:58] LABS: CREATININE SERUM 0.9 MG/DL (0.60-1.30)
--- NOTE | 2022-04-26 07:30 | Progress Note - Surgery ---
CÉSAR MARIN 04/26/22 0730: Subjective Date Seen by a Provider: Apr 26, 2022 Time Seen by a Provider: 07:25 Subjective/Events-last exam Our patient is a 36 yo M s/p I&D of right 2nd finger abscess post-operative day 1. He notes that his pain has improved from yesterday and rates it as a near constant 08/19 but states that it has been a while since he was administered any pain medication. Notes that the pain does not travel up his forearm as far as it had the past few days. He denies any SOB, dyspnea, dysuria, chills, diaphoresis, vomiting, chest pain, or palpitations. He notes some minor nausea yesterday evening for which he was given ondansetron. He states that he has had a mild headache since his admission and that he had to get up out of bed every two hours or so last night to urinate. His dressing had not yet been changed at the time of the examination. Review of Systems General: No Chills, No Night Sweats HEENT: Head Aches (since being admitted); No Visual Changes Pulmonary: No Dyspnea, No Cough Cardiovascular: No: Chest Pain, Palpitations Gastrointestinal: Nausea (last night for which he was administered ondansetron); No: Vomiting, Diarrhea, Constipation Genitourinary: No Dysuria; Frequency (Urinated every two hours last night) Musculoskeletal: No: neck pain, leg pain Neurological: No: Weakness, Numbness Focused Exam Lactate Level 04/23/22 23:55: Lactic Acid Level 0.97 Objective Exam Vital Signs Date Time Temp Pulse Resp B/P (MAP) Pulse Ox O2 Delivery O2 Flow Rate FiO2 04/26/22 04:38 36.2 93 18 95/55 (68) 98 Room Air 04/25/22 23:45 36.9 68 18 109/61 (77) 96 Room Air 04/25/22 19:30 Room Air 04/25/22 19:00 36.7 75 18 118/67 (84) 97 Room Air 04/25/22 16:34 36.7 99 18 120/66 (84) 99 Room Air 04/25/22 13:50 Room Air 04/25/22 13:50 36.7 20 133/76 (95) 96 Room Air 04/25/22 13:45 Room Air 04/25/22 13:40 20 131/79 (96) 95 OxyMask 04/25/22 13:30 Room Air 04/25/22 13:30 20 131/79 (96) 97 Room Air 04/25/22 13:20 20 128/72 (90) 99 OxyMask 3.00 04/25/22 13:15 OxyMask 4.00 04/25/22 13:10 20 121/65 (83) 98 OxyMask 6.00 04/25/22 13:00 20 112/59 (76) 98 OxyMask 6.00 04/25/22 13:00 OxyMask 6.00 04/25/22 12:54 OxyMask 6.00 04/25/22 12:54 36.7 16 112/59 (76) 97 OxyMask 6.00 04/25/22 12:01 37.1 72 18 118/75 (89) 96 Room Air 04/25/22 08:00 Room Air 04/25/22 07:51 36.8 68 18 99/62 (74) 98 Room Air I & O 04/26/22 07:00 Intake Total 950 ml Balance 950 ml Capillary Refill : Less Than 3 SecondsLess Than 3 Seconds General Appearance: No Apparent Distress, WD/WN HEENT: PERRL/EOMI; No Scleral Icterus (L), No Scleral Icterus (R) Neck: Non Tender, Supple; No Carotid Bruit, No Lymphadenopathy (L), No Lymphadenopathy (R), No Thyromegaly Respiratory: Chest Non Tender, Normal Breath Sounds, No Accessory Muscle Use, No Respiratory Distress Cardiovascular: Regular Rate, Rhythm, No Gallop, No Murmur Peripheral Pulses: 2+ Radial Pulses (R), 2+ Radial Pulses (L) Gastrointestinal: non tender, soft, no organomegaly; No guarding, No rebound, No tenderness Extremity: No Calf Tenderness; No Pedal Edema Neurologic/Psychiatric: Alert, Oriented x3 Skin: Warm/Dry; No Diaphoresis Results Lab Laboratory Tests 04/26/22 05:26: White Blood Count 4.5, Red Blood Count 4.70, Hemoglobin 14.0, Hematocrit 42, Mean Corpuscular Volume 89, Mean Corpuscular Hemoglobin 30, Mean Corpuscular Hemoglobin Concent 34, Red Cell Distribution Width 13.0, Platelet Count 319, Mean Platelet Volume 10.3, Immature Granulocyte % (Auto) 0, Neutrophils (%) (Auto) 48, Lymphocytes (%) (Auto) 36, Monocytes (%) (Auto) 11, Eosinophils (%) (Auto) 4, Basophils (%) (Auto) 1, Neutrophils # (Auto) 2.2, Lymphocytes # (Auto) 1.6, Monocytes # (Auto) 0.5, Eosinophils # (Auto) 0.2, Basophils # (Auto) 0.1, Immature Granulocyte # (Auto) 0.0, Sodium Level 139, Potassium Level 4.3, Chloride Level 105, Carbon Dioxide Level 24, Anion Gap 10, Blood Urea Nitrogen 10, Creatinine 0.90, Estimat Glomerular Filtration Rate 115, BUN/Creatinine Ratio 11, Glucose Level 89, Calcium Level 8.7, Corrected Calcium 9.1, Total Bilirubin 0.2, Aspartate Amino Transf (AST/SGOT) 20, Alanine Aminotransferase (ALT/SGPT) 15, Alkaline Phosphatase 77, Total Protein 6.5, Albumin 3.5 Microbiology 04/25/22 Gram Stain - Final, Resulted 04/25/22 Anaerobic Culture, Resulted Pending 04/25/22 Surgical Culture - Preliminary, Resulted Staphylococcus aureus 04/24/22 Blood Culture - Preliminary, Resulted No growth Assessment/Plan Assessment/Plan Assessment/Plan Cellulitis with abscess of right second digit - patient taken to OR yesterday for an I&D of the abscess. He notes that his pain is improved this morning and rates it as a near-constant 6/10. Will continue antibiotic treatment and pain medications. Wound culture showed moderate growth of staphylococcus aureus. Patient should continue to elevate site to assist with drainage. Leukocytosis - resolved. WBC down to 4.5 from 12.8 at admission. Mild anemia - last taken HgB was 14.0 up from 13.1 yesterday. BHAVIN ODELL DO 04/26/22 1335: Subjective Time Seen by a Provider: 13:17 Subjective/Events-last exam Pt seen and examined, states he thinks his finger is better; pain is better. Review of Systems Pulmonary: No Dyspnea, No Cough Cardiovascular: No: Chest Pain, Palpitations Gastrointestinal: Nausea (last night for which he was administered ondansetron); No: Vomiting Objective Exam General Appearance: No Apparent Distress, WD/WN Respiratory: Chest Non Tender, Lungs Clear, Normal Breath Sounds, No Accessory Muscle Use, No Respiratory Distress Cardiovascular: Regular Rate, Rhythm, No Murmur Peripheral Pulses: 2+ Radial Pulses (R), 2+ Radial Pulses (L) Extremity: No Calf Tenderness, Other (dressing taken down, finger still swollen but redness appear less and no purulence. He has trouble flexing finger, but can hold it down if passively flexed. Flexion only causes minimal pain) Skin: Diaphoresis Assessment/Plan Assessment/Plan Assessment/Plan S/P I&D of Right 2nd digit - Hand Plan to d/c home on oral ABX, he was told to continue using warm compresses and monitoring finger. If he has worsening of ROM, swelling, redness or pain he should come see me or go to the ER right away. Supervisory-Addendum Brief Verification & Attestation Participated in pt care: history, MDM, physical Personally performed: exam, history, MDM, supervision of care Care discussed with: Medical Student Procedures: n/a Verification and Attestation of Medical Student E/M Service A medical student performed and documented this service. I then reviewed and verified all information documented by the medical student and made modifications to such information, when appropriate. I personally performed a physical exam, medical decision making and then discussed any differences between the notes and made revisions as necessary to create one note. Bhavin Odell , 04/26/22 , 13:35 CÉSAR MARIN Apr 26, 2022 07:30 BHAVIN ODELL DO Apr 26, 2022 13:35
[2022-04-26] MEDS: VANCOMYCIN 750 MG/NS 250 ML IVPB IV SCH ×2 (07:54)
[2022-04-26] MEDS: NICOTINE 14 MG (NICODERM) PATCH TD SCH (07:54)
[2022-04-26] MEDS: LACTATED RINGERS 1,000 ML IV SCH (07:56)
[2022-04-26] MEDS: NICOTINE PATCH REMOVAL TP SCH (07:57)
[2022-04-26] MEDS: HYDROcodone/APAP 7.5 MG/325 MG (LORTAB, LORCET PLUS) TABLET PO PRN (08:08)
[2022-04-26 08:57] VITALS: BP 118/60
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
[2022-04-26 12:46] VITALS: BP 120/65
--- NOTE | 2022-04-26 13:37 | Discharge Inst-Surgical ---
Discharge Inst-Surgical Depart Medication/Instructions Patient Instructions Follow up Appt: Make appointment for 1 week. [phone] Instructions: No lifting greater than 20 pounds. No strenuous activity. May shower in 24 hours, no tub bath or soaking. Use incentive spirometer at home as directed. No Smoking Skin/Wound Care: May remove bandages in am. You need to change dressing daily. Symptoms to Report: Appetite Changes, Extremity Discoloration, Numbness/Tingling, Swelling Increased, Bleeding Excessive, Eyesight Changes, Pain Increased, Urine Color Change, Constipation(Persistent), Fever over 101 degree F, Pain/Pressure in chest, Urinating Difficulty, Cough Up/Vomit Blood, Heart Beat Irreg/Pounding, Pain/Pressure in jaw, Cramps in feet or legs, Lightheadedness, Pain/Pressure in shoulder, Diarrhea(Persistent), Memory Changes Suddenly, Questions/Concerns, Weight gain consecutive days, Dizziness/Fainting, Nausea/Vomiting, Shortness of Breath, Weight gain over 2 pounds If questions or concerns contact your physician Or seek help at emergency department. Activity Activity as Tolerated: Yes Activity Instructions: Avoid Stress to Incision Driving Instructions: No Driving/Refer to Dr. Nixon Discharge Diet: No Restrictions Diet After 24 Hours: Clear Liquid if Nauseous If Any Problems/Questions/Issu: Contact Your Physician, Go to Emergency Room Skin/Wound Care Infection Signs and Symptoms: Increased Redness, Foul Odor of Wound, Increased Drainage, Skin Itchy or Has a Rash, Increased Swelling, Temperature Above 101 F Wound Care Comment: If you have trouble with range of motion of finger, "can't bend it etc", f/u immediately Bathing Instructions: ROBYN Mclean DO Apr 26, 2022 13:36
[2022-04-26] MEDS ORDERED: CLIN-144 PO (13:54)
[2022-04-26] MEDS ORDERED: HYDR-34 PO (13:54)
--- NOTE | 2022-04-26 13:56 | Discharge Summary ---
Discharge [facility] Reconcile Patient Problems Problems Reviewed?: Yes Discharge Medications New, Converted or Re-Newed RX: Transmitted to Pharmacy New Medications: Clindamycin HCl (Clindamycin HCl) 300 Mg Capsule 300 MG PO BID for 7 Days, #14 CAP Hydrocodone Bit/Acetaminophen (HYDROcodone/APAP 7.5/325 TAB) 1 Ea Tablet 1 EA PO Q6HR PRN for PAIN-MODERATE (5-7), #20 TAB Continued Medications: Acetaminophen (Tylenol Extra Strength) 500 Mg Tablet 1500 MG PO Q8H PRN for PAIN-MILD (1-4), TAB TAKES 3 (500MG) TABS Ibuprofen (Ibuprofen) 200 Mg Tablet 600 MG PO Q8H PRN for PAIN-MILD (1-4), TAB TAKES 3 (200MG) TABS Omeprazole (Omeprazole) 20 Mg Tablet.dr 20 MG PO DAILY, TAB Patient Instructions Goal/Follow Up Appt: 1 week f.u with PCP at [facility] Activity & Diet Discharge Diet: No Restrictions Activity as Tolerated: Yes EVELYN MCCOLLUM MD Apr 26, 2022 13:56
== END 2022-04-26 15:05 | disposition home or self-care (01) | DRG 935 ==
LOC: EDUNIT# 22:32 → ER 22:33 → 4TH 23:45
PROVIDERS: ADMIT Internal Medicine; ATTEND Family Medicine
PROC: 0J9J0ZZ Drainage of Right Hand Subcutaneous Tissue and Fascia, Open Approach (ICD-10-PCS; principal; 2022-04-25 12:40)
DX: T23.221A Burn of second degree of single right finger (nail) except thumb, initial encounter (principal); L03.113 Cellulitis of right upper limb; L03.011 Cellulitis of right finger; B95.62 Methicillin resistant Staphylococcus aureus infection as the cause of diseases classified elsewhere; T31.0 Burns involving less than 10% of body surface; D64.9 Anemia, unspecified; K21.9 Gastro-esophageal reflux disease without esophagitis; F17.210 Nicotine dependence, cigarettes, uncomplicated; F12.90 Cannabis use, unspecified, uncomplicated; Z79.1 Long term (current) use of non-steroidal anti-inflammatories (NSAID); Z79.891 Long term (current) use of opiate analgesic; Z88.1 Allergy status to other antibiotic agents; Z88.8 Allergy status to other drugs, medicaments and biological substances; X08.8XXA Exposure to other specified smoke, fire and flames, initial encounter
CPT/HCPCS: 36415; 73130; 76881; 80048; 80053; 80202; 83605; 85025; 85652; 86141; 87040; 87070; 87075; 87077; 87081; 87205

== ENCOUNTER 2022-09-13 19:52 | Emergency (ER) | payer OTHER ==
[~2022-09-13] VITALS: Ht 182.9 cm; Wt 70.3 kg
[~2022-09-13 19:52] MED LIST changes: +ACET-2267 PO; +CLIN-144 PO; +HYDR-34 PO; +IBUP-2473 PO; +OMEP20TA56 PO
[2022-09-13 19:58] VITALS: BP 114/79
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
[2022-09-13] MEDS ORDERED: LIDOCAINE 1% INJ 20 ML VIAL INJ ONE (20:15)
[2022-09-13] MEDS ORDERED: HYDROcodone/APAP 7.5 MG/325 MG (LORTAB, LORCET PLUS) TABLET PO STA (20:21)
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
[2022-09-13] MEDS ORDERED: SULF-221 PO (20:46)
[2022-09-13] MEDS ORDERED: ACHD5005 PO (20:46)
== END 2022-09-13 21:00 | disposition home or self-care (01) ==
LOC: EDUNIT# 19:52 → ER 19:55
DX: S61.210A Laceration without foreign body of right index finger without damage to nail, initial encounter (principal); S61.212A Laceration without foreign body of right middle finger without damage to nail, initial encounter; F17.210 Nicotine dependence, cigarettes, uncomplicated; Z28.310 Unvaccinated for COVID-19; Z88.0 Allergy status to penicillin; V89.2XXA Person injured in unspecified motor-vehicle accident, traffic, initial encounter; W22.8XXA Striking against or struck by other objects, initial encounter; Y92.410 Unspecified street and highway as the place of occurrence of the external cause
CPT/HCPCS: 12015; 29130; 73110; 73130